=== PATIENT | female | born 1940 | race Caucasian/White ===

== ENCOUNTER 2019-05-25 00:15 | Inpatient (IN) | payer MEDICARE ==
[2019-05-25] MEDS ORDERED: ONDANSETRON 4 MG/2 ML VIAL IVP STA (00:33)
[2019-05-25] MEDS ORDERED: ASPIRIN 81 MG PO STA (00:33)
[2019-05-25] MEDS ORDERED: SODIUM CHLORIDE 0.9% 1,000 ML IV STA (00:33)
--- NOTE | 2019-05-25 00:43 | ED ---
Chest Pain HPI - General Chief Complaint: Chest Pain Stated Complaint: Chest Pain, Nausea Time Seen by Provider: 05/25/19 00:33 Source: patient Mode of arrival: wheelchair Limitations: no limitations - History of Present Illness Initial Comments: Umberto is a 79-year-old lady with a past medical history of hypertension, hyperlipidemia and diabetes. Patient presents to the emergency department today for evaluation of acute onset of chest pain. Patient reports that around 8:30 PM she was sitting on her couch when she developed retrosternal pressure-like chest pain with associated diaphoresis and nausea. Patient thought initially it might just be indigestion and she has no history of heart disease. She took some [id number]-pod-[id number] indigestion relief medications including [place] with no improvement in her symptoms. Patient reports that since onset she's had progressively worsening pain in her chest with associated nausea which prompted her to bring her to the ER for further evaluation. - Related Data Home Medications Medication Instructions Recorded Confirmed Aspirin EC [Ecotrin Low Dose] 81 mg PO HS 07/20/16 07/20/16 Atenolol [Tenormin] 50 mg PO DAILY 07/20/16 07/20/16 Insulin Glargine,Hum.rec.anlog 25 unit SQ HS 07/20/16 07/20/16 [Lantus Solostar] Pravastatin Sodium [Pravachol] 40 mg PO HS 07/20/16 07/20/16 metFORMIN HCL 1,000 mg PO BID 07/20/16 07/20/16 sitaGLIPtin [Januvia] 100 mg PO DAILY 07/20/16 07/20/16 Previous Rx's Medication Instructions Recorded Losartan [Cozaar] 100 mg PO DAILY #60 tab 07/22/16 Meclizine [Antivert] 12.5 mg PO TID #30 tab 07/22/16 Ondansetron HCl [Zofran] 4 mg PO Q8HR PRN #15 tab 07/22/16 Pantoprazole [Protonix] 40 mg PO BID #60 tablet. 07/22/16 amLODIPine [Norvasc] 5 mg PO BID #60 tab 07/22/16 Allergies Allergy/AdvReac Type Severity Reaction Status Date / Time indomethacin [From Indocin] Allergy Unknown Verified 05/25/19 00:21 morphine Allergy Unknown Verified 05/25/19 00:21 Review of Systems ROS Statement: Those systems with pertinent positive or pertinent negative responses have been documented in the HPI. ROS Other: All systems not noted in ROS Statement are negative. EKG Findings - EKG Comments: EKG Findings:: Initial EKG was obtained at 12:33 AM, rate is 97 rhythm is sinus, there is normal axis, normal intervals, MS 180, QRS 80, QTC is 469, there is ST elevation in leads [address] depression noted in lead 1 and V2 through V6. This is concerning for ischemic changes but does not meet STEMI criteria. A repeat EKG was obtained at 12:40 AM, rate is 89 rhythm is again sinus with a normal axis, normal intervals, MS 186, QRS 72, QTc is 450, again we see significant ST elevations in leads 3 mild J-point elevation in leads 2, ST depressions in leads 1 aVL and the lateral leads. This is again concerning for ischemia but does not meet STEMI criteria Past Medical History Past Medical History: Diabetes Mellitus, Hyperlipidemia, Hypertension Additional Past Medical History / Comment(s): RSD History of Any Multi-Drug Resistant Organisms: None Reported Past Surgical History: Section Past Anesthesia/Blood Transfusion Reactions: No Reported Reaction Past Psychological History: No Psychological Hx Reported Smoking Status: Never smoker Past Alcohol Use History: None Reported Past Drug Use History: None Reported - Past Family History Mother Family Medical History: No Reported History Father Family Medical History: Myocardial Infarction ([place]) General Exam - General Exam Comments Initial Comments: Physical Exam GENERAL: Uncomfortable appearing, moderate distress HENT: Normocephalic, Atraumatic. EYES: PERRL, EOMI PULMONARY: Unlabored respirations CARDIOVASCULAR: RRR Warm and well perfused extremities, pulses are present and equal bilaterally in upper and lower extremities ABDOMEN: Soft and nontender with normal bowel sounds. SKIN: Skin is clear with no lesions or rashes and otherwise unremarkable. Pale : Normal external genitalia NEUROLOGIC: Patient is alert and oriented x3. Moving all extremities spontaneously MUSCULOSKELETAL: Normal extremities with adequate strength and full range of motion. No lower extremity swelling or edema. No calf tenderness. PSYCHIATRIC: Appropriate situational anxiety Limitations: no limitations Course Vital Signs 05/25/19 05/25/19 05/25/19 00:18 01:02 01:16 Temperature 98.1 F Pulse Rate 95 Respiratory 18 20 Rate Blood Pressure 191/81 151/81 181/84 O2 Sat by Pulse 99 Oximetry Chest Pain MDM - Differential Diagnosis ACS - MDM The patient was seen and evaluated upon arrival to the emergency department and EKG was obtained. Initial EKG is quite concerning for ischemia. Patient's history and physical exam also concerning is the patient is an obese hypertensive diabetic who became diaphoretic developed chest pain and nausea. Patient is noted to be hypertensive. Initial EKG and repeat EKG were discussed with Dr. Mackey cardiology distribution manager at 12:40 AM, given the patient's age, medical history and presenting symptoms we agreed to activate the Medical Payment Poster, Dr. Mackey recommended aggressive nitro for blood pressure control Again spoke with Dr. Maceky at 1250, at this time he would like a CT to rule out dissection Patient received one sublingual nitro, blood pressure decreased from 181 sy stolic to 129, this is concerning for a right-sided myocardial infarction. We will not pursue more aggressive nitro. IV fluids are infusing. Patient was transferred to the CT suite for dissection study. Portable chest x-ray with no mediastinal widening Patient care discussed with Dr. Wright who accepts admission I personally reviewed the images from the patient CT I see no obvious signs of dissection. She returned to her exam room, repeat blood pressure is again 180 systolic, a second sublingual nitro was given, a low dose nitro drip was ordered and the patient was transferred to shellfish processing laborer to 01:[address] Mackey was updated on patient's condition and location, as well as preliminary CT findings - LINDSAY Score Age > 65: (1) Yes 3 or more CAD Risk Factors: (1) Yes Aspirin use within the Past 7 Days: (1) Yes ST Deviation Greater than 0.5mm: (1) Yes Critical Care Time Critical Care Time: Yes Total Critical Care Time: 45 Critical Care Time: Critical Care Time Critical care time was exclusive of separately billable procedures and treating other patients and teaching time. Critical care was necessary to treat or prevent imminent or life-threatening deterioration. Given the critical condition in which the patient arrived, the patient was immediately assessed by myself and the nurse, and cardiac monitoring initiated due to the potential for rapid decompensation of the patient's clinical condition. During the course of the patients stay, I spent a considerable amount of time at the bedside performing serial re-evaluations of the patient's hemodynamic and clinical status because of the recognized potential threat to life or limb in this condition. I then had a chance to review not only all of the available current laboratory and radiographic studies obtained today, but I also reviewed old records available to me at the time. Additionally, any ancillary information available including tar heater records were reviewed. Sequential vital signs were obtained. Disposition Clinical Impression: Chest pain, Myocardial ischemia Disposition: ADMITTED IP TO THIS HOSP Condition: Serious
[2019-05-25] MEDS: NITROGLYCERIN SL TABS 0.4 MG TAB SUBLINGUAL PRN ×2 (00:53→01:17)
[2019-05-25 00:58] LABS: Anisocytosis Slight; Basophils % (A) 0 %; Eosinophils # (A) 0.3 k/uL (0-0.7); Eosinophils % (A) 3 %; HCT 33.2 % (34.0-46.0); HGB 10.5 gm/dL (11.4-16.0); Hypochromasia Slight; Lymphocytes # (A) 2.4 k/uL (1.0-4.8); Lymphocytes % (A) 22 %; MCHC 31.7 g/dL (31.0-37.0); MCV 85.3 fL (80.0-100.0); Mean Platelet Volume 7.7; Monocytes # (A) 0.7 k/uL (0-1.0); Monocytes % (A) 6 %; Neutrophils # (A) 7.4 k/uL (1.3-7.7); Neutrophils % (A) 66 %; Platelet Count 261 k/uL (150-450); RDW 16.1 % (11.5-15.5); WBC 11.1 k/uL (3.8-10.6)
[2019-05-25] MEDS ORDERED: HEPARIN SODIUM,PORCINE 5,000 UNIT/ML 1 ML VIAL IV ONE (01:03)
[2019-05-25 01:05] LABS: Albumin 4.2 g/dL (3.5-5.0); Calcium 9.2 mg/dL (8.4-10.2); Potassium 4.7 mmol/L (3.5-5.1); Total Bilirubin 0.4 mg/dL (0.2-1.3); Total Protein 7.3 g/dL (6.3-8.2)
[2019-05-25 01:06] LABS: INR 0.9 (<1.2); Partial Thromboplastin Time 23.3 sec (22.0-30.0); Prothrombin Time 9.5 sec (9.0-12.0)
[2019-05-25] MEDS ORDERED: HEPARIN SOD,PORK IN 0.45% NACL 25,000 UNIT in 0.45% NACL 1 250ML.BAG IV SCH (01:15)
--- NOTE | 2019-05-25 01:16 | XR ---
EXAM: XR Chest, 1 View CLINICAL HISTORY: ITS.REASON XR Reason: Chest Pain TECHNIQUE: Frontal view of the chest. COMPARISON: No relevant prior studies available. FINDINGS: Lungs: Unremarkable. No consolidation. Pleural space: Unremarkable. No pneumothorax. Heart: No pneumomediastinum. Mediastinum: Unremarkable. Bones/joints: No definite fracture. IMPRESSION: No acute findings.
[2019-05-25] MEDS ORDERED: NITROGLYCERIN-D5W PMX 50 MG in DEXTROSE/WATER 1 250ML.BAG IV ONE (01:17)
[2019-05-25 01:22] LABS: Creatine Kinase MB 1.2 ng/mL (0.0-2.4)
--- NOTE | 2019-05-25 01:28 | CT ---
EXAM: CT Angiography Chest With Intravenous Contrast CLINICAL HISTORY: ITS.REASON CT Reason: Chest pain TECHNIQUE: Axial computed tomographic angiography images of the chest with intravenous contrast using pulmonary embolism protocol. This CT exam was performed using one or more of the following dose reduction techniques: automated exposure control, adjustment of the mA and/or kV according to patient size, and/or use of iterative reconstruction technique. MIP reconstructed images were created and reviewed. COMPARISON: No relevant prior studies available. FINDINGS: Pulmonary arteries: Unremarkable. No pulmonary embolism. Aorta: No suspicious findings. No thoracic aortic aneurysm. Lungs: Unremarkable. No mass. No consolidation. Pleural space: Unremarkable. No significant effusion. No pneumothorax. Heart: Unremarkable. No cardiomegaly. No significant pericardial effusion. No evidence of RV dysfunction. Bones/joints: No acute fracture. No dislocation. Soft tissues: Unremarkable. Lymph nodes: Unremarkable. No enlarged lymph nodes. IMPRESSION: Normal chest CTA. No pulmonary embolism. EXAM: CT Angiography Abdomen and Pelvis With Intravenous Contrast CLINICAL HISTORY: ITS.REASON CT Reason: Chest pain TECHNIQUE: Axial computed tomographic angiography images of the abdomen and pelvis with intravenous contrast. This CT exam was performed using one or more of the following dose reduction techniques: automated exposure control, adjustment of the mA and/or kV according to patient size, and/or use of iterative reconstruction technique. 3D reconstructed images were created and reviewed. COMPARISON: No relevant prior studies available. FINDINGS: VASCULATURE: Aorta: No suspicious findings. No abdominal aortic aneurysm. No dissection. Celiac trunk and mesenteric arteries: No suspicious findings. No occlusion or significant stenosis. Renal arteries: No suspicious findings. No occlusion or significant stenosis. Iliac arteries: No suspicious findings. No occlusion or significant stenosis. Lung bases: Unremarkable. No mass. No consolidation. ABDOMEN: Liver: No mass. Gallbladder and bile ducts: Unremarkable. No calcified stones. No ductal dilation. Pancreas: Unremarkable. No ductal dilation. No mass. Spleen: Unremarkable. No splenomegaly. Adrenals: Unremarkable. No mass. Kidneys and ureters: Unremarkable. No hydronephrosis. No solid mass. Stomach and bowel: Unremarkable. No obstruction. No mucosal thickening. PELVIS: Appendix: No findings to suggest acute appendicitis. Bladder: Unremarkable. No mass. Reproductive: Calcified fibroids in the uterus ABDOMEN and PELVIS: Intraperitoneal space: Unremarkable. No significant fluid collection. No free air. Bones/joints: No acute fracture. No dislocation. Soft tissues: Unremarkable. Lymph nodes: Unremarkable. No enlarged lymph nodes. IMPRESSION: No acute findings.
[2019-05-25 01:35] LABS: Troponin I 0.042 ng/mL (0.000-0.034)
[2019-05-25] MEDS ORDERED: IV FLUID CONTINUATION 1,000 ML IV ONE (01:35)
[2019-05-25] MEDS ORDERED: NITROGLYCERIN SL TABS 0.4 MG TAB SUBLINGUAL ONE (01:40)
[2019-05-25] MEDS ORDERED: MIDAZOLAM (PF) 2 MG/2 ML VIAL IV ONE (01:40)
[2019-05-25] MEDS ORDERED: LIDOCAINE 1% INJ 10MG/ML (20 ML MDV) SQ ONE (01:42)
[2019-05-25] MEDS: NITROGLYCERIN 1000MCG/10ML SYRINGE INTRAARTER ONE ×2 (01:44→02:08)
[2019-05-25] MEDS ORDERED: BIVALIRUDIN BOLUS 250 MG/50 ML IV ONE (01:53)
[2019-05-25] MEDS ORDERED: BIVALIRUDIN 250 MG in SODIUM CHLORIDE 0.9% 50 ML IV ONE (01:54)
[2019-05-25] MEDS ORDERED: CLOPIDOGREL 75 MG TAB PO ONE (02:08)
[2019-05-25] MEDS ORDERED: HYDROmorphone 1 MG/ML 1 ML SYRINGE IVP ONE (02:14)
[2019-05-25] MEDS ORDERED: IOPAMIDOL-370 100ML BTL INJ ONE (02:15)
[2019-05-25] MEDS ORDERED: amLODIPine 5 MG TAB PO ONE (02:25)
[2019-05-25] MEDS ORDERED: NITROGLYCERIN SL TABS 0.4 MG TAB SUBLINGUAL PRN (02:29)
[2019-05-25] MEDS ORDERED: ZOLPIDEM 5 MG TAB PO PRN (02:29)
[2019-05-25] MEDS ORDERED: MAG HYDROX/AL HYDROX/SIMETH 30 ML CUP PO PRN (02:29)
[2019-05-25] MEDS ORDERED: RX INFO: IV CONTRAST WAS GIVEN 1 EACH MISC MISCELLANE PRN (02:29)
[2019-05-25] MEDS ORDERED: ATROPINE SULFATE 0.1 MG/ML 10ML SYRINGE IV PRN (02:29)
[2019-05-25 03:02] LABS: Glucose,Whole Blood 226 mg/dL (75-99)
[2019-05-25 03:09] VITALS: BMI 38.5
--- NOTE | 2019-05-25 03:56 | P.HPIM ---
History of Present Illness H&P Date: 05/25/19 Chief Complaint: chest pain 79-year-old female with history of hypertension diabetes, CK D Patient was brought into the hospital due to worsening chest pain. She reports the chest pain started all of a sudden around 8:30 PM. Described as retrosternal pressure-like chest pain 10 out of 10 in severity associated with sweating and nausea patient thought that she's having indigestion from dinner ticks on medications without much benefit due to progressive symptoms , and pain started radiating to her left shoulder and arm and worsening pain she was brought into the hospital lab rep was activated upon cardiology recommendations EKGs showed signs of ischemia but did not meet criteria for STEMI. Patient had elevated troponin and crushing chest pain. Cardiology recommended giving nitroglycerin ruling out dissection. Patient denies any cardiac history in the past she was foundto have 99% blockage of RCA< stent was deployed Review of Systems Pertinent positives as noted in HPI. All other systems were reviewed and are negative Past Medical History Past Medical History: Diabetes Mellitus, Hyperlipidemia, Hypertension Additional Past Medical History / Comment(s): RSD History of Any Multi-Drug Resistant Organisms: None Reported Past Surgical History: Section Past Anesthesia/Blood Transfusion Reactions: No Reported Reaction Past Psychological History: No Psychological Hx Reported Smoking Status: Never smoker Past Alcohol Use History: None Reported Past Drug Use History: None Reported - Past Family History Mother Family Medical History: No Reported History Father Family Medical History: Myocardial Infarction ([place]) Medications and Allergies Home Medications Medication Instructions Recorded Confirmed Type Aspirin EC [Ecotrin Low Dose] 81 mg PO HS 07/20/16 07/20/16 History Atenolol [Tenormin] 50 mg PO DAILY 07/20/16 07/20/16 History Insulin Glargine,Hum.rec.anlog 25 unit SQ HS 07/20/16 07/20/16 History [Lantus Solostar] Pravastatin Sodium [Pravachol] 40 mg PO HS 07/20/16 07/20/16 History metFORMIN HCL 1,000 mg PO BID 07/20/16 07/20/16 History sitaGLIPtin [Januvia] 100 mg PO DAILY 07/20/16 07/20/16 History Losartan [Cozaar] 100 mg PO DAILY #60 tab 07/22/16 Rx Meclizine [Antivert] 12.5 mg PO TID #30 tab 07/22/16 Rx Ondansetron HCl [Zofran] 4 mg PO Q8HR PRN #15 tab 07/22/16 Rx Pantoprazole [Protonix] 40 mg PO BID #60 tablet. 07/22/16 Rx amLODIPine [Norvasc] 5 mg PO BID #60 tab 07/22/16 Rx Allergies Allergy/AdvReac Type Severity Reaction Status Date / Time indomethacin [From Indocin] Allergy Unknown Verified 05/25/19 00:21 morphine Allergy Unknown Verified 05/25/19 00:21 Physical Exam Vitals: Vital Signs Temp Pulse Resp BP Pulse Ox 05/25/19 01:16 181/84 05/25/19 01:02 20 151/81 05/25/19 00:18 98.1 F 95 18 191/81 99 Intake and Output 05/24/19 05/24/19 05/25/19 14:59 22:59 06:59 Other: Weight 81.647 kg Constitutional: No acute distress, conversant, pleasant Eyes: Anicteric sclerae, moist conjunctiva, no lid-lag Pupils equal round reactive to light ENMT: NC/AT Oropharynx clear, no erythema, or exudates Neck: Supple, FROM, no masses, or JVD No carotid bruits No thyromegaly Lungs: Clear to auscultation Clear to percussion Normal respiratory effort, no accessory muscle use Cardiovascular: Heart regular in rate and rhythm, No murmurs, gallops, or rubs bilateral leg edema trace Abdominal: Soft Nontender, no guarding, rebound or rigidity Abdomen moving with respiration Normoactive bowel sounds No hepatomegaly, No splenomegaly No palpable mass No abdominal wall hernia noted Skin: right groin access site, no swelling, no bruising , no bleeding Normal temperature, tone, texture, turgor No induration No subcutaneous nodules No rash, lesions No ulcers Extremities: No digital cyanosis No clubbing Pedal pulses intact and symmetrical Radial pulses intact and symmetrical No calf tenderness Psychiatric: Alert and oriented to person, place not oriented to time Appropriate affect fair judgment Neuro Muscles Strength 4/5 in all 4 extremities Sensation to light touch grossly present throughout Cranial nerves II-XII grossly intact No focal sensory deficits Lymphatics: no palpable cervical or supraclavicular , or inguinal lymph nodes Results CBC & Chem 7: 05/25/19 00:50 05/25/19 00:50 Labs: Abnormal Lab Results - Last 24 Hours (Table) 05/25/19 05/25/19 05/25/19 Range/Units 00:50 00:50 00:50 WBC 11.1 H (3.8-10.6) k/uL Hgb 10.5 L (11.4-16.0) gm/dL Hct 33.2 L (34.0-46.0) % RDW 16.1 H (11.5-15.5) % BUN 32 H (7-17) mg/dL Creatinine 1.32 H (0.52-1.04) mg/dL Glucose 217 H (74-99) mg/dL Troponin I 0.042 H* (0.000-0.034) ng/mL Assessment and Plan Assessment: 79-year-old female with history of diabetes hypertension and CK D. Admitted as inpatient with anticipated length of stay more than 48 hours due to chest pain with typical features patient was rushed to the lab rep found to have 99% RCA blockage for which a stent was deployed. Patient also had hypertensive urgency. Plan: chest pain 2/2 ACS with 99% RCA blockage s/p stent lab rep activated CT angios the chest did not show any evidence of dissection Aspirin, nitro, statin Cardiology consult Pain control Nitro as needed per cardiology recommendations plavix accelerated hypertension Nitro per cardiology recommendations Resume home meds Chronic conditions Hyperlipidemia Diabetes mellitus CK D Anemia Resume home meds DVT PPX heparin sc Surrogate decision-maker: CODE STATUS:full code Discussed with: Patient, ER, RN Anticipated discharge: 48-[address]: home A total of 60 minutes was spent on the care of this complex patient more than 50% of the time was spent in counseling and care coordination.
[2019-05-25 05:36] LABS: Magnesium 1.4 mg/dL (1.6-2.3)
[2019-05-25 05:47] LABS: Anisocytosis Slight; Basophils % (A) 0 %; Eosinophils % (A) 0 %; HCT 28.4 % (34.0-46.0); Hypochromasia Moderate; Lymphocytes # (A) 1.2 k/uL (1.0-4.8); Lymphocytes % (A) 16 %; MCH 27.2 pg (25.0-35.0); MCHC 31.5 g/dL (31.0-37.0); MCV 86.1 fL (80.0-100.0); Mean Platelet Volume 8.2; Monocytes # (A) 0.3 k/uL (0-1.0); Monocytes % (A) 5 %; Neutrophils # (A) 5.7 k/uL (1.3-7.7); Neutrophils % (A) 77 %; Platelet Count 225 k/uL (150-450); WBC 7.3 k/uL (3.8-10.6)
[2019-05-25 05:55] LABS: Calcium 8.5 mg/dL (8.4-10.2); Potassium 5.7 mmol/L (3.5-5.1)
[2019-05-25 05:58] LABS: HGB 8.9 gm/dL (11.4-16.0)
[2019-05-25] MEDS: SODIUM CHLORIDE 0.9% 1,000 ML IV SCH ×2 (07:02→16:22)
[2019-05-25] MEDS: INSULIN ASPART (NovoLOG) 100 UNIT/ML VIAL SQ SCH ×4 (07:35→20:56)
[2019-05-25] MEDS: METOPROLOL TARTRATE 25 MG TAB PO SCH ×2 (08:19→20:58)
[2019-05-25] MEDS: CLOPIDOGREL 75 MG TAB PO SCH (08:19)
[2019-05-25] MEDS: LOSARTAN 50 MG TAB PO SCH (08:19)
[2019-05-25] MEDS: ASPIRIN 81 MG PO SCH (08:19)
[2019-05-25] MEDS: amLODIPine 5 MG TAB PO SCH ×2 (08:19→20:58)
[2019-05-25] MEDS: HEPARIN SODIUM,PORCINE 5,000 UNIT/ML 1 ML VIAL SQ SCH ×2 (08:20→20:57)
--- NOTE | 2019-05-25 09:41 | CONS ---
CONSULTATION Mrs. Peña is a 79-year-old lady without any physician that she sees here in [facility]. She has a health care in [place], [place]. She came into the hospital after 1-week history of ongoing episodes of epigastric and chest burning sensation for which she took some [place]. However, she had a prolonged pain from 9 pm today, came to the emergency room, had chest pain with radiation to the left upper extremity. Also complained of some crushing discomfort in the upper portion of the chest. Her systolic blood pressure was 190-200 and the EKG revealed [address] elevation in lead [address] depression in lateral leads. Clinical presentation did not suggest acute ST-elevation VT. However, because of an acute ischemic syndrome and significantly elevated blood pressure in a patient with known type 2 diabetes, hypertension, hyperlipidemia, and obesity, I recommended a CAT scan to be performed to rule out any aortic pathology. CT angio did not reveal any aortic pathology and then she was taken to the cardiac lab engineer for coronary angiography. Rationale, risks, benefits, options were explained to the patient. At the time of my evaluation in the lab engineer, patient's chest pain was better. Her ST-segment elevation was not evident. The initial EKG revealed [address] elevation in lead [address] depression in lead V5 and V6 and one in aVL. Prompt cardiac catheterization and PCI were advised and I proceeded to perform procedure expeditiously. PAST MEDICAL HISTORY: This is remarkable for type 2 diabetes mellitus, on insulin, hypertension, hyperlipidemia. No documented evidence of any prior myocardial infarction. MEDICATIONS: At home include amlodipine 5 mg b.i.d., losartan 100 mg daily, Antivert, atenolol 50 mg daily, insulin, Lantus and Humalog, Pravachol 40 mg daily, metformin 1000 mg b.i.d., aspirin 81 mg daily. She also used some statins in the past. ALLERGIES: She is allergic to INDOMETHACIN and MORPHINE. Her coronary risk factors include diabetes, hypertension, hyperlipidemia, and obesity. She is not a smoker. On examination, blood pressure was 210/110, pulse rate was about 90 per minute. HEENT: Unremarkable, fundus was not examined by me. NECK: Exam revealed a JVD of 1 cm. No carotid bruit. HEART: Exam revealed S1, S2 heard normally without significant murmurs. LUNGS: Revealed bilateral decent air entry. ABDOMEN: Soft. EXTREMITIES: Lower extremity revealed diminished pulses. CENTRAL NERVOUS SYSTEM: Grossly within normal limits. IMPRESSION: 1. Acute ischemic syndrome with ST-segment depression in one aVL, V5, V6 with a [address]-segment elevation in lead 3. Clinical picture strongly suggest acute ischemic syndrome, but does not suggest acute ST-elevation myocardial infarction. 2. Accelerated hypertension. 3. Hyperlipidemia. 4. Type 2 diabetes. RECOMMENDATION: Recommend a prompt cardiac cath and PCI and proceeded to perform the procedure expeditiously. MMODL / IJN: [id number] /
--- NOTE | 2019-05-25 09:44 | CC ---
CARDIAC CATHETERIZATION REPORT DATE OF SERVICE: 05/25/2019. PROCEDURE: 1. Left heart catheterization and coronary angiography. 2. PTCA and stenting of proximal RCA in the setting of acute ischemic syndrome, but not ST-elevation ID. PERFORMED BY: Dr. Kirby Mackey. Moderate conscious sedation time was 30 minutes. CLINICAL INFORMATION: Mrs. Umberto Peña is a 79-year-old lady with type 2 diabetes, hypertension, and obesity who came to the hospital with chest pain, had ST-segment changes suggestive of suggestive of the acute ischemic syndrome. She was advised prompt cardiac catheterization and was brought to the cardiac laborer yard expeditiously. PROCEDURE NOTE: Under local anesthesia and strict aseptic precautions, a 6-Divehi introducer was placed in the right femoral artery. Coronary angiography was performed with standard Taras catheters and the same right Taras catheter was used to check LV pressure but LV gram was not performed. Following this, I performed intervention of the proximal RCA in the same setting. Following the procedure, I took the sheath out and placed a Perclose device to secure good hemostasis. CARDIAC CATHETERIZATION FINDINGS: The left end-diastolic pressure was about 26 mmHg without any gradient across aortic valve. CORONARY ANGIOGRAPHY FINDINGS: RIGHT CORONARY ARTERY: Technically a dominant vessel, has a 99% proximal stenosis, calcification noted. Distally it bifurcates into PDA and PLV and both the branches. the PDA and PLV have diffuse disease of nearly 40%-50%, but no critical stenosis. Proximal RCA has a 99% stenosis and appears to be the culprit lesion. LEFT MAIN CORONARY ARTERY: Short patent disease-free vessel that immediately bifurcates into LAD and circumflex. Left main itself is free of significant disease. LEFT ANTERIOR DESCENDING CORONARY ARTERY: Fair caliber vessel has moderate calcification. It gives off a first diagonal branch of good caliber, then a septal branch and then a second diagonal branch. After the second diagonal branch, there is a long area of narrowing of about 70% to 80% and then the caliber of the vessel improves somewhat, but there is still diffuse disease and runs all the way to the apex supplying a sizable amount of myocardium. The mid LAD therefore has a 70% long lesion which I do not think is the culprit lesion, but quite significant. Two diagonal branches have diffuse disease and septal branch have diffuse disease in distal LAD has diffuse disease. LEFT POSTERIOR CIRCUMFLEX CORONARY ARTERY: Nondominant vessel, gives off to one small obtuse marginal, then a second obtuse marginal is of a small caliber with fair distribution, has a 99% stenosis. Overall, the vessel is less than 2 mm, has diffuse disease in it and proximal portion has a 95% stenosis, but is not a large vessel. Third obtuse marginal is a good caliber vessel, has about 40% proximal lesion, distally runs and supplies a sizable amount of myocardium, is tortuous, supplies a fair amount of myocardium. Rest of circumflex is small in caliber and distribution. FINAL IMPRESSION: This patient has a 99% proximal right coronary artery stenosis with diffuse disease in the branches of right coronary artery. The left anterior descending artery has a 70% long mid lesion. Circumflex, the second obtuse marginal is small in caliber and distribution, has a 95% stenosis and the obtuse marginal which is the largest obtuse marginal has a 40% narrowing with mild diffuse disease in distal circumflex. Filling pressures are elevated, but there was no gradient across aortic valve. RECOMMENDATION: I recommended PCI of RCA and performed this in the same setting. PCI PROCEDURE DETAILS: A standard right Taras guide catheter was used to cannulate the right coronary artery. Angiomax bolus and drip were used as per protocol. The patient received 600 mg of Plavix orally. A run-through wire was used to cross the lesion. A 2.5 caliber 15 mm Trek balloon was used to pre-dilate the lesion. A 3.25 caliber 23 mm long Xience stent was deployed at 13 atmospheres. Patient had chest pain and had more prominent inferior ST elevation. Excellent angiographic result was achieved without complication. The sheath was then taken out and a Perclose device used to secure hemostasis and she was sent to the room in stable condition. Findings and results were discussed with the patient and family. Excellent angiographic result was achieved. Moderate conscious sedation time was 30 minutes. Patient was administered Versed. Oxygen saturation, hemodynamics and EKG were monitored closely. MMODL / IJN: [id number] /
--- NOTE | 2019-05-25 09:56 | PN ---
PROGRESS NOTE Mrs. Peña is a 79-year-old female who presented with an acute inferior myocardial infarction, underwent cardiac catheterization by Dr. Kirby Mackey, was found to have a critical stenosis in the right coronary artery, underwent stenting of that vessel. At the same time, she was found to have disease in the LAD. She is doing well this morning. She has no further symptoms of chest pain. Her breathing has been stable. She denies any dizziness or palpitation. She denies any nausea. She has no prior documented history of coronary artery disease prior to this event. She continues to be at this time on aspirin once a day, Lipitor 80 mg daily, Plavix 75 mg daily, losartan 100 mg daily, metoprolol tartrate 25 mg twice a day. PHYSICAL EXAMINATION: Blood pressure running in the 160s to 170s with a heart rate in the 70s. HEAD: Normocephalic. EYES: Sclerae nonicteric. LUNGS: Clear to auscultation. HEART: Regular rate and rhythm, S1, S2. No S3. No rub with a systolic murmur at the base. ABDOMEN: Soft, nontender. Positive bowel sounds. No organomegaly. Right groin, no hematoma. LAB DATA: Revealed a hemoglobin of 8.9. Troponin 0.042 yesterday. BUN and creatinine 28 and 1.16, potassium 5.7. IMPRESSION: 1. Status post inferior myocardial infarction and stenting of the right coronary artery. 2. 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 3. Hypertension. 4. Hyperlipidemia. 5. Diabetes mellitus. RECOMMENDATION: From the cardiac standpoint, I will obtain echocardiogram with Doppler. I will adjust her antihypertensive regimen. Continue rest of medical regimen, increase her activity gradually and depending on her progress further recommendation will be made. The patient will and will need to undergo re-evaluation of her LAD lesion, but the timing will depend on her progress. MMODL / IJN: [id number] /
--- NOTE | 2019-05-25 10:01 | ECHOF ---
Referral Reason:Inf [place] RCA PCI MEASUREMENTS -------- HEIGHT: 129.5 cm WEIGHT: 81.6 kg BP: RVIDd: 2.3 cm (< 3.3) IVSd: 1.0 cm (0.6 - 1.1) LVIDd: 4.2 cm (3.9 - 5.3) LVPWd: 1.3 cm (0.6 - 1.1) IVSs: 1.7 cm LVIDs: 2.4 cm LVPWs: 1.9 cm LAESV Index (A-L): 18.56 ml/m Ao Diam: 2.6 cm (2.0 - 3.7) AV Cusp: 1.5 cm (1.5 - 2.6) LA Diam: 3.1 cm (2.7 - 3.8) MV EXCURSION: 11.800 mm (> 18.000) MV EF SLOPE: 56 mm/s (70 - 150) EPSS: 1.0 cm MV E Paul: 1.00 m/s MV DecT: 208 ms MV A Paul: 1.42 m/s MV E/A Ratio: 0.71 RAP: 5.00 mmHg RVSP: 21.31 mmHg FINDINGS -------- Sinus rhythm. This was a technically good study. The left ventricular size is normal. There is mild concentric left ventricular hypertrophy. Overa ll left ventricular systolic function is normal with, an EF between 55 - 60 %. The right ventricle is normal in size. The left atrial size is normal. Normal LA size by volume 22+/-6 ml/m2. The right atrial size is normal. Interatrial and interventricular septum intact. The aortic valve is trileaflet and appears structurally normal. The mitral valve is normal. Moderate mitral regurgitation is present. The tricuspid valve appears structurally normal. Mild tricuspid regurgitation present. Right vent ricular systolic pressure is normal at < 35 mmHg. There is no pulmonic regurgitation present. The aortic root size is normal. Normal inferior vena cava with normal inspiratory collapse consistent with estimated right atrial pre ssure of 5 mmHg. There is no pericardial effusion. CONCLUSIONS -------- 1. Sinus rhythm. 2. This was a technically good study. 3. The left ventricular size is normal. 4. There is mild concentric left ventricular hypertrophy. 5. Overall left ventricular systolic function is normal with, an EF between 55 - 60 %. 6. The right ventricle is normal in size. 7. The left atrial size is normal. 8. Normal LA size by volume 22+/-6 ml/m2. 9. The right atrial size is normal. 10. Interatrial and interventricular septum intact. 11. The aortic valve is trileaflet and appears structurally normal. 12. The mitral valve is normal. 13. Moderate mitral regurgitation is present. 14. The tricuspid valve appears structurally normal. 15. Mild tricuspid regurgitation present. 16. Right ventricular systolic pressure is normal at < 35 mmHg. 17. There is no pulmonic regurgitation present. 18. The aortic root size is normal. 19. Normal inferior vena cava with normal inspiratory collapse consistent with estimated right atrial pressure of 5 mmHg. 20. There is no pericardial effusion. DOCK OPERATIONS SUPERVISOR: Nikki Gonzalez RDCS
[2019-05-25 12:31] LABS: Glucose,Whole Blood 89 mg/dL (75-99)
[2019-05-25] MEDS ORDERED: Magnesium Replacement Protocol 1 EACH MISC MISCELLANE PRN (13:01)
[2019-05-25] MEDS: MAGNESIUM SULFATE-D5W PMX 1 GM in DEXTROSE/WATER 1 100ML.BAG IVPB SCH ×3 (13:22→16:16)
--- NOTE | 2019-05-25 15:42 | P.PN ---
Subjective Progress Note Date: 05/25/19 Patient is seen and examined and follow-up and is having minimal chest discomfort post left heart cath with stenting of the RCA. She reports her breathing is doing okay, denies any nausea or vomiting. blood sugars have been elevated. Echocardiogram has been done results are pending. Left heart cath showed coronary disease with a 99% proximal RCA stenosis, 70% LAD lesion, 95% stenosis in the obtuse marginal, and 40% narrowing in the distal circumflex. Objective - Vital Signs Vital signs: Vital Signs Temp 98.1 F 05/25/19 12:00 Pulse 71 05/25/19 15:00 Resp 16 05/25/19 15:00 BP 125/51 05/25/19 15:00 Pulse Ox 94 L 05/25/19 15:00 Intake & Output 05/24/19 05/25/19 05/25/19 18:59 06:59 18:59 Intake Total 150 700 Balance 150 700 Weight 86.5 kg 86.5 kg Intake: IV 150 450 Sodium Chloride 0.9% 1, 450 000 ml @ 75 mls/hr IV . [id number] [facility] Rx#:[id number] Oral 250 Other: Voiding Method Toilet # Voids 2 1 - Exam Constitutional: No acute distress, conversant, pleasant Eyes: Anicteric sclerae, moist conjunctiva, no lid-lag, PERRLA ENMT: NC/AT,Oropharynx clear, no erythema, exudates Neck:Supple, FROM, no masses, or JVD, No carotid bruits; No thyromegaly Lungs: Clear to auscultation, Clear to percussion, Normal respiratory effort, no accessory muscle use Cardiovascular: Heart regular in rate and rhythm, No murmurs, gallops, or rubs no peripheral edema Abdominal: Soft Nontender, nom distended, no guarding, no rebound or rigidity, Normoactive bowel sounds No hepatomegaly, No splenomegaly, No palpable mass No abdominal wall hernia noted Skin: Normal temperature, tone, texture, turgor, No induration No subcutaneous nodules, No rash, lesions, No ulcers Extremities:No digital cyanosis No clubbing, Pedal pulses intact and symmetrical Radial pulses intact and symmetrical Normal gait and station, No calf tenderness Psychiatric: Alert and oriented to person, place and time, Appropriate affect Intact judgement Neuro: Muscles Strength 5/5 in all 4 extremities, Sensation to light touch grossly present throughout, Cranial nerves II-XII grossly intact. No focal sensory deficits - Labs CBC & Chem 7: 05/25/19 05:22 05/25/19 05:22 Labs: Abnormal Lab Results - Last 24 Hours (Table) 05/25/19 05/25/19 05/25/19 Range/Units 00:50 00:50 00:50 WBC 11.1 H (3.8-10.6) k/uL RBC (3.80-5.40) m/uL Hgb 10.5 L (11.4-16.0) gm/dL Hct 33.2 L (34.0-46.0) % RDW 16.1 H (11.5-15.5) % Sodium (137-145) mmol/L Potassium (3.5-5.1) mmol/L BUN 32 H (7-17) mg/dL Creatinine 1.32 H (0.52-1.04) mg/dL Glucose 217 H (74-99) mg/dL POC Glucose (mg/dL) (75-99) mg/dL Magnesium 1.4 L (1.6-2.3) mg/dL Troponin I 0.042 H* (0.000-0.034) ng/mL 05/25/19 05/25/19 05/25/19 Range/Units 02:50 05:22 05:22 WBC (3.8-10.6) k/uL RBC 3.30 L (3.80-5.40) m/uL Hgb 8.9 L D (11.4-16.0) gm/dL Hct 28.4 L (34.0-46.0) % RDW 16.0 H (11.5-15.5) % Sodium 135 L (137-145) mmol/L Potassium 5.7 H (3.5-5.1) mmol/L BUN 28 H (7-17) mg/dL Creatinine 1.16 H (0.52-1.04) mg/dL Glucose 242 H (74-99) mg/dL POC Glucose (mg/dL) 226 H (75-99) mg/dL Magnesium (1.6-2.3) mg/dL Troponin I (0.000-0.034) ng/mL 05/25/19 05/25/19 Range/Units 05:22 13:34 WBC (3.8-10.6) k/uL RBC (3.80-5.40) m/uL Hgb (11.4-16.0) gm/dL Hct (34.0-46.0) % RDW (11.5-15.5) % Sodium (137-145) mmol/L Potassium (3.5-5.1) mmol/L BUN (7-17) mg/dL Creatinine (0.52-1.04) mg/dL Glucose (74-99) mg/dL POC Glucose (mg/dL) (75-99) mg/dL Magnesium (1.6-2.3) mg/dL Troponin I 11.400 H* 24.200 H* (0.000-0.034) ng/mL Assessment and Plan (1) Non-ST elevation [place] (NSTEMI) Narrative/Plan: * Status post left coronary heart catheterization with stenting of the RCA * Echocardiogram showing preserved LVEF of 55-60% * Continue dual antiplatelet therapy with Plavix and aspirin, metoprolol, and Lipitor * Cardiology following appreciate recommendations Current Visit: Yes Status: Acute Code(s): I21.4 - NON-ST ELEVATION (NSTEMI) MYOCARDIAL INFARCTION SNOMED Code(s): 20030013 (2) Presence of stent in coronary artery in patient with coronary artery disease Narrative/Plan: * The treatment as above * Patient has further lesions in the LAD left obtuse marginal and circumflex arteries Current Visit: Yes Status: Acute Code(s): I25.10 - ATHSCL HEART DISEASE OF [place] CORONARY ARTERY W/O ANG PCTRS; Z95.5 - PRESENCE OF CORONARY ANGIOPLASTY IMPLANT AND GRAFT SNOMED Code(s): 143634791 (3) Type 2 diabetes mellitus with hyperglycemia Narrative/Plan: * Blood sugars elevated to 17-242 * continue with correctional scale insulin coverage continue Januvia we'll resume her home insulin regimen 35 units of long-acting insulin * Continue Januvia * Continue to monitor blood sugars Current Visit: Yes Status: Acute Code(s): E11.65 - TYPE 2 DIABETES MELLITUS WITH HYPERGLYCEMIA SNOMED Code(s): 951266087271066 (4) Essential hypertension Narrative/Plan: * Blood pressures are now much better controlled continue to monitor * Continue regimen of metoprolol and Norvasc and losartan Current Visit: Yes Status: Acute Code(s): I10 - ESSENTIAL (PRIMARY) HYPERTENSION SNOMED Code(s): 29592355 (5) Hyperlipidemia Narrative/Plan: * Continue statin regimen Current Visit: Yes Status: Acute Code(s): E78.5 - HYPERLIPIDEMIA, UNSPECI FIED SNOMED Code(s): 60146813 Plan: * Disposition patient doing well post-stenting of the RCA * May need reevaluation and stenting of the LAD will defer decision to cardiology whether to proceed with that during his hospitalization or planned follow-up * Continue to follow patient's clinical course
[2019-05-25 16:39] LABS: Hemoglobin A1C 7.8 % (4.0-6.0)
[2019-05-25 16:48] LABS: Glucose,Whole Blood 201 mg/dL (75-99)
[2019-05-25 20:53] LABS: Glucose,Whole Blood 159 mg/dL (75-99)
[2019-05-25] MEDS: INSULIN DETEMIR (LEVEMIR) 100 UNIT/ML SYR SQ SCH (20:57)
[2019-05-25] MEDS: ATORVASTATIN 80 MG TAB PO SCH (20:58)
[2019-05-25] MEDS: FLUTICASONE 50MCG/SPRAY NASAL 16GM EA NOSTRIL SCH (21:03)
[2019-05-26 06:07] LABS: Calcium 9.1 mg/dL (8.4-10.2); Magnesium 2.2 mg/dL (1.6-2.3); Potassium 4.7 mmol/L (3.5-5.1)
[2019-05-26] MEDS: INSULIN ASPART (NovoLOG) 100 UNIT/ML VIAL SQ SCH ×4 (06:53→21:38)
[2019-05-26 07:03] LABS: Glucose,Whole Blood 117 mg/dL (75-99)
[2019-05-26] MEDS: HEPARIN SODIUM,PORCINE 5,000 UNIT/ML 1 ML VIAL SQ SCH ×2 (08:30→21:38)
[2019-05-26] MEDS: CLOPIDOGREL 75 MG TAB PO SCH (08:31)
[2019-05-26] MEDS: METOPROLOL TARTRATE 25 MG TAB PO SCH (08:31)
[2019-05-26] MEDS: MAGNESIUM OXIDE 400 MG TAB PO SCH (08:32)
[2019-05-26] MEDS: LOSARTAN 50 MG TAB PO SCH (08:32)
[2019-05-26] MEDS: amLODIPine 5 MG TAB PO SCH ×2 (08:32→21:38)
[2019-05-26] MEDS: ASPIRIN 81 MG PO SCH (08:32)
[2019-05-26] MEDS: FLUTICASONE 50MCG/SPRAY NASAL 16GM EA NOSTRIL SCH ×2 (08:34→21:39)
[2019-05-26] MEDS ORDERED: NON-FORMULARY DRUG (Ubidecarenone [Co Q-10] 300 MG) PO SCH (09:00)
[2019-05-26] MEDS: HYDROCHLOROTHIAZIDE 25 MG TAB PO SCH (09:10)
--- NOTE | 2019-05-26 09:20 | PN ---
PROGRESS NOTE Mrs. Peña is a 79-year-old female who presented with an acute myocardial infarction, underwent stenting of her RCA. She is doing well this morning, she is denying any chest pain. Her breathing is stable. She has some achiness in the right side of the chest. She denies any dizziness or palpitation. She denies any nausea. She had underwent an echocardiogram yesterday that revealed ejection fraction of 55%-60% with moderate mitral and mild tricuspid regurgitation. No evidence of pulmonary hypertension. She continues to be at this time on aspirin once a day, Plavix 75 mg daily. Losartan 100 mg daily, metoprolol tartrate 25 mg twice a day, and amlodipine 5 mg twice a day. PHYSICAL EXAMINATION: Blood pressure 169/90 with a heart in the 80s. LUNGS: Clear. HEART: Regular rate and rhythm, S1, S2. No S3. No rub. ABDOMEN: Soft, nontender. EXTREMITIES: No edema. LAB DATA: Lab data revealed BUN and creatinine 17 and 0.99, potassium 4.7 her troponin peaked at 24.2. Cholesterol 157, LDL of 74. IMPRESSION: 1. Status post inferior myocardial infarction with stenting of the right coronary artery. 2. Evidence of obstructive disease in the LAD. 3. Hypertension. 4. Hyperlipidemia. 5. Diabetes mellitus. RECOMMENDATION: From the cardiac standpoint, I will add to her regimen hydrochlorothiazide 25 mg daily to optimize her blood pressure control. She should be able to be transferred to telemetry floor. She will be evaluated regarding the timing of undergoing revascularization of her LAD territory. MMODL / IJN: [id number] /
[2019-05-26] MEDS ORDERED: METOPROLOL TARTRATE 25 MG TAB PO STA (11:57)
--- NOTE | 2019-05-26 11:59 | P.PN ---
Subjective Progress Note Date: 05/26/19 Patient is seen and examined and follow-up and is having minimal chest discomfort post left heart cath with stenting of the RCA. She reports her breathing is doing okay, denies any nausea or vomiting. blood sugars have been elevated but improved control today. Echocardiogram indicating preserved LVEF with moderate MR, Left heart cath showed coronary disease with a 99% proximal RCA stenosis, 70% LAD lesion, 95% stenosis in the obtuse marginal, and 40% narrowing in the distal circumflex. Blood pressure today has been elevated systolically from 155 to 190s Objective - Vital Signs Vital signs: Vital Signs Temp 98.7 F 05/26/19 08:00 Pulse 76 05/26/19 10:00 Resp 15 05/26/19 10:00 BP 193/68 05/26/19 10:37 Pulse Ox 95 05/26/19 10:00 Intake & Output 05/25/19 05/26/19 05/26/19 18:59 06:59 18:59 Intake Total 1325 310 320 Balance 1325 310 320 Weight 86.5 kg 83 kg Intake: IV 825 310 20 Sodium Chloride 0.9% 1, 825 310 20 000 ml @ 75 mls/hr IV . [id number] [facility] Rx#:[id number] Oral 500 300 Other: Voiding Method Toilet Toilet Toilet # Voids 1 1 1 - Exam Constitutional: No acute distress, conversant, pleasant Eyes: Anicteric sclerae, moist conjunctiva, no lid-lag, PERRLA ENMT: NC/AT,Oropharynx clear, no erythema, exudates Neck:Supple, FROM, no masses, or JVD, No carotid bruits; No thyromegaly Lungs: Clear to auscultation, Clear to percussion, Normal respiratory effort, no accessory muscle use Cardiovascular: Heart regular in rate and rhythm, No murmurs, gallops, or rubs no peripheral edema Abdominal: Soft Nontender, nom distended, no guarding, no rebound or rigidity, Normoactive bowel sounds No hepatomegaly, No splenomegaly, No palpable mass No abdominal wall hernia noted Skin: Normal temperature, tone, texture, turgor, No induration No subcutaneous nodules, No rash, lesions, No ulcers Extremities:No digital cyanosis No clubbing, Pedal pulses intact and symmetrical Radial pulses intact and symmetrical Normal gait and station, No calf tenderness Psychiatric: Alert and oriented to person, place and time, Appropriate affect Intact judgement Neuro: Muscles Strength 5/5 in all 4 extremities, Sensation to light touch grossly present throughout, Cranial nerves II-XII grossly intact. No focal sensory deficits - Labs CBC & Chem 7: 05/25/19 05:22 05/26/19 04:34 Labs: Abnormal Lab Results - Last 24 Hours (Table) 05/25/19 05/25/19 05/25/19 Range/Units 05:22 13:34 16:37 Chloride (98-107) mmol/L POC Glucose (mg/dL) 201 H (75-99) mg/dL Hemoglobin A1c 7.8 H (4.0-6.0) % Troponin I 24.200 H* (0.000-0.034) ng/mL Triglycerides (<150) mg/dL 05/25/19 05/26/19 05/26/19 Range/Units 20:41 04:34 06:50 Chloride 109 H (98-107) mmol/L POC Glucose (mg/dL) 159 H 117 H (75-99) mg/dL Hemoglobin A1c (4.0-6.0) % Troponin I (0.000-0.034) ng/mL Triglycerides 186 H (<150) mg/dL Assessment and Plan (1) Non-ST elevation [place] (NSTEMI) Narrative/Plan: * Status post left coronary heart catheterization with stenting of the RCA * Echocardiogram showing preserved LVEF of 55-60% * Continue dual antiplatelet therapy with Plavix and aspirin, metoprolol, and Lipitor * Cardiology following appreciate recommendations Current Visit: Yes Status: Acute Code(s): I21.4 - NON-ST ELEVATION (NSTEMI) MYOCARDIAL INFARCTION SNOMED Code(s): 03948766 (2) Presence of stent in coronary artery in patient with coronary artery disease Narrative/Plan: * The treatment as above * Patient has further lesions in the LAD left obtuse marginal and circumflex arteries Current Visit: Yes Status: Acute Code(s): I25.10 - ATHSCL HEART DISEASE OF [place] CORONARY ARTERY W/O ANG PCTRS; Z95.5 - PRESENCE OF CORONARY ANGIOPLASTY IMPLANT AND GRAFT SNOMED Code(s): 866967301 (3) Type 2 diabetes mellitus with hyperglycemia Narrative/Plan: * Blood sugars elevated to 17-242 * continue with correctional scale insulin coverage continue Arianuvtulio we'll resume her home insulin regimen 35 units of long-acting insulin * Continue Januvia * Continue to monitor blood sugars Current Visit: Yes Status: Acute Code(s): E11.65 - TYPE 2 DIABETES MELLITUS WITH HYPERGLYCEMIA SNOMED Code(s): 324822562265184 (4) Essential hypertension Narrative/Plan: * Blood pressures are significantly elevated today systolically between 150 to 190s * titrated up metoprolol to 50 twice a day and give extra dose of metoprolol 25 now and continue Norvasc and losartan * Continue to monitor blood pressure closely Current Visit: Yes Status: Acute Code(s): I10 - ESSENTIAL (PRIMARY) HYPERTENSION SNOMED Code(s): 58092488 (5) Hyperlipidemia Narrative/Plan: * Continue statin regimen Current Visit: Yes Status: Acute Code(s): E78.5 - HYPERLIPIDEMIA, UNSPECIFIED SNOMED Code(s): 19803654 Plan: * Disposition patient doing well post-stenting of the RCA * May need reevaluation and stenting of the LAD will defer decision to cardiolo gy whether to proceed with that during his hospitalization or planned follow- up * Continue to follow patient's clinical course
[2019-05-26 12:16] LABS: Glucose,Whole Blood 168 mg/dL (75-99)
[2019-05-26 17:19] LABS: Glucose,Whole Blood 119 mg/dL (75-99)
[2019-05-26] MEDS ORDERED: LABETALOL 5 MG/ML VIAL MDV IVP STA (18:59)
[2019-05-26] MEDS: ATORVASTATIN 80 MG TAB PO SCH (21:38)
[2019-05-26] MEDS: METOPROLOL TARTRATE 50 MG TAB PO SCH (21:38)
[2019-05-26] MEDS: hydrALAZINE HCL 50 MG TAB PO SCH (21:38)
[2019-05-26] MEDS: INSULIN DETEMIR (LEVEMIR) 100 UNIT/ML SYR SQ SCH (21:39)
[2019-05-27 06:28] LABS: Glucose,Whole Blood 122 mg/dL (75-99)
[2019-05-27 06:35] LABS: Calcium 9.2 mg/dL (8.4-10.2); Potassium 4.7 mmol/L (3.5-5.1)
[2019-05-27] MEDS: INSULIN ASPART (NovoLOG) 100 UNIT/ML VIAL SQ SCH ×4 (06:36→21:10)
[2019-05-27] MEDS: HYDROCHLOROTHIAZIDE 25 MG TAB PO SCH (09:15)
[2019-05-27] MEDS: HEPARIN SODIUM,PORCINE 5,000 UNIT/ML 1 ML VIAL SQ SCH ×2 (09:15→21:10)
[2019-05-27] MEDS: CLOPIDOGREL 75 MG TAB PO SCH (09:15)
[2019-05-27] MEDS: ASPIRIN 81 MG PO SCH (09:15)
[2019-05-27] MEDS: amLODIPine 5 MG TAB PO SCH ×2 (09:15→21:11)
[2019-05-27] MEDS: LOSARTAN 50 MG TAB PO SCH (09:15)
[2019-05-27] MEDS: hydrALAZINE HCL 50 MG TAB PO SCH ×3 (09:15→21:11)
[2019-05-27] MEDS: FLUTICASONE 50MCG/SPRAY NASAL 16GM EA NOSTRIL SCH ×2 (09:15→21:10)
[2019-05-27] MEDS: MAGNESIUM OXIDE 400 MG TAB PO SCH (09:15)
[2019-05-27] MEDS: METOPROLOL TARTRATE 50 MG TAB PO SCH (09:19)
--- NOTE | 2019-05-27 09:55 | P.PN ---
Subjective Progress Note Date: 05/27/19 Patient's and examined bedside has been up and amplitude to the restroom and back, blood pressure looks much improved today. Nursing reporting 6 second positives on patient's telemetry strip, the patient denies any symptoms of chest pain but reported episodes of shortness of breath at approximately 3 AM last night. Objective - Vital Signs Vital signs: Vital Signs Temp 98.2 F 05/27/19 03:10 Pulse 80 05/27/19 03:10 Resp 16 05/27/19 03:10 BP 141/61 05/27/19 03:10 Pulse Ox 95 05/27/19 03:10 Intake & Output 05/26/19 05/27/19 05/27/19 18:59 06:59 18:59 Intake Total 320 240 Balance 320 240 Weight 81.7 kg Intake: IV 20 Sodium Chloride 0.9% 1, 20 000 ml @ 75 mls/hr IV . [id number] ALO Rx#:[id number] Oral 300 240 Other: Voiding Method Toilet Toilet # Voids 1 - Exam Constitutional: No acute distress, conversant, pleasant Eyes: Anicteric sclerae, moist conjunctiva, no lid-lag, PERRLA ENMT: NC/AT,Oropharynx clear, no erythema, exudates Neck:Supple, FROM, no masses, or JVD, No carotid bruits; No thyromegaly Lungs: Clear to auscultation, Clear to percussion, Normal respiratory effort, no accessory muscle use Cardiovascular: Heart regular in rate and rhythm, No murmurs, gallops, or rubs no peripheral edema Abdominal: Soft Nontender, nom distended, no guarding, no rebound or rigidity, Normoactive bowel sounds No hepatomegaly, No splenomegaly, No palpable mass No abdominal wall hernia noted Skin: Normal temperature, tone, texture, turgor, No induration No subcutaneous nodules, No rash, lesions, No ulcers Extremities:No digital cyanosis No clubbing, Pedal pulses intact and symmetrical Radial pulses intact and symmetrical Normal gait and station, No calf tenderness Psychiatric: Alert and oriented to person, place and time, Appropriate affect Intact judgement Neuro: Muscles Strength 5/5 in all 4 extremities, Sensation to light touch grossly present throughout, Cranial nerves II-XII grossly intact. No focal sensory deficits - Labs CBC & Chem 7: 05/25/19 05:22 08/31/19 05:55 Labs: Abnormal Lab Results - Last 24 Hours (Table) 05/26/19 05/26/19 05/27/19 Range/Units 12:05 17:08 05:55 BUN 19 H (7-17) mg/dL Creatinine 1.24 H (0.52-1.04) mg/dL Glucose 120 H (74-99) mg/dL POC Glucose (mg/dL) 168 H 119 H (75-99) mg/dL 05/27/19 Range/Units 06:26 BUN (7-17) mg/dL Creatinine (0.52-1.04) mg/dL Glucose (74-99) mg/dL POC Glucose (mg/dL) 122 H (75-99) mg/dL Assessment and Plan (1) Non-ST elevation PR (NSTEMI) Narrative/Plan: * Status post left coronary heart catheterization with stenting of the RCA * Echocardiogram showing preserved LVEF of 55-60% * Continue dual antiplatelet therapy with Plavix and aspirin, metoprolol, and Lipitor * Cardiology following appreciate recommendations Current Visit: Yes Status: Acute Code(s): I21.4 - NON-ST ELEVATION (NSTEMI) MYOCARDIAL INFARCTION SNOMED Code(s): 64308428 (2) Presence of stent in coronary artery in patient with coronary artery disease Narrative/Plan: * The treatment as above * Patient has further lesions in the LAD left obtuse marginal and circumflex arteries Current Visit: Yes Status: Acute Code(s): I25.10 - ATHSCL HEART DISEASE OF [place] CORONARY ARTERY W/O ANG PCTRS; Z95.5 - PRESENCE OF CORONARY ANGIOPLASTY IMPLANT AND GRAFT SNOMED Code(s): 254164413 (3) Type 2 diabetes mellitus with hyperglycemia Narrative/Plan: * Blood sugars elevated to 17-242 * continue with correctional scale insulin coverage continue Januvia we'll resum e her home insulin regimen 35 units of long-acting insulin * Continue Januvia * Continue to monitor blood sugars Current Visit: Yes Status: Acute Code(s): E11.65 - TYPE 2 DIABETES MELLITUS WITH HYPERGLYCEMIA SNOMED Code(s): 186557776525797 (4) Essential hypertension Narrative/Plan: * Blood pressures are much improved today * Hold metoprolol today and continue Norvasc and losartan and hydralazine * Continue to monitor blood pressure closely Current Visit: Yes Status: Acute Code(s): I10 - ESSENTIAL (PRIMARY) HYPERTENSION SNOMED Code(s): 06790609 (5) Hyperlipidemia Narrative/Plan: * Continue statin regimen Current Visit: Yes Status: Acute Code(s): E78.5 - HYPERLIPIDEMIA, UNSPECIFIED SNOMED Code(s): 25226848 Plan: * Disposition patient doing well post-stenting of the RCA * May need reevaluation and stenting of the LAD will defer decision to cardiology whether to proceed with that during his hospitalization or planned follow-up * Continue to follow patient's clinical course
[2019-05-27 12:02] LABS: Glucose,Whole Blood 202 mg/dL (75-99)
--- NOTE | 2019-05-27 12:24 | PN ---
PROGRESS NOTE Umberto is admitted to hospital with acute myocardial infarction and underwent cardiac catheterization and angioplasty of right coronary artery. Patient has a 70% stenosis involving mid LAD and also has a 95% stenosis involving an OM branch. Patient needs LAD stenting, but I am told that the plan at this stage is to perform this in the outpatient setting. Patient this morning is doing well and is free of symptoms. On exam, comfortable at rest. Vital signs are stable. Chest exam reveals good air entry bilaterally. Heart exam reveals first and second heart sounds. No gallop. Exam of extremities did not reveal any edema. Peripheral pulses are felt. Labs show that the creatinine is 1.2. Current medications include aspirin, Lipitor, Plavix, Apresoline, HydroDIURIL, Cozaar, Lopressor. ASSESSMENT: Acute coronary syndrome, status post catheterization and angioplasty of right coronary artery. PLAN: Patient is doing well. I am going to talk to Dr. Mackey about the LAD lesion but patient is stable to be discharged home when we are going to decide the angioplasty of the LAD. MMODL / IJN: [id number] /
[2019-05-27 16:56] LABS: Glucose,Whole Blood 218 mg/dL (75-99)
[2019-05-27 21:05] LABS: Glucose,Whole Blood 172 mg/dL (75-99)
[2019-05-27] MEDS: INSULIN DETEMIR (LEVEMIR) 100 UNIT/ML SYR SQ SCH (21:10)
[2019-05-27] MEDS: ATORVASTATIN 80 MG TAB PO SCH (21:11)
[2019-05-28 06:55] LABS: Glucose,Whole Blood 176 mg/dL (75-99)
[2019-05-28] MEDS: INSULIN ASPART (NovoLOG) 100 UNIT/ML VIAL SQ SCH ×4 (07:22→21:01)
--- NOTE | 2019-05-28 08:21 | P.PN ---
Subjective Progress Note Date: 05/28/19 Patient's and examined bedside has been up and amplitude to the restroom and back, blood pressure looks much improved today. Nursing reporting 2.8 sec pauses on patient's telemetry strip, the patient denies any symptoms of chest pain blood sugars have been elevated this morning and 170s receive sliding scale coverage, patient's blood pressure is been more well controlled Objective - Vital Signs Vital signs: Vital Signs Temp 98.4 F 05/28/19 03:20 Pulse 98 05/28/19 03:20 Resp 16 05/28/19 03:20 BP 108/57 05/28/19 03:20 Pulse Ox 94 L 05/28/19 03:20 Intake & Output 05/27/19 05/28/19 05/28/19 18:59 06:59 18:59 Intake Total 1380 Balance 1380 Intake: Oral 1380 Other: Voiding Method Toilet Toilet # Voids 2 - Exam Constitutional: No acute distress, conversant, pleasant Eyes: Anicteric sclerae, moist conjunctiva, no lid-lag, PERRLA ENMT: NC/AT,Oropharynx clear, no erythema, exudates Neck:Supple, FROM, no masses, or JVD, No carotid bruits; No thyromegaly Lungs: Clear to auscultation, Clear to percussion, Normal respiratory effort, no accessory muscle use Cardiovascular: Heart regular in rate and rhythm, No murmurs, gallops, or rubs no peripheral edema Abdominal: Soft Nontender, nom distended, no guarding, no rebound or rigidity, Normoactive bowel sounds No hepatomegaly, No splenomegaly, No palpable mass No abdominal wall hernia noted Skin: Normal temperature, tone, texture, turgor, No induration No subcutaneous nodules, No rash, lesions, No ulcers Extremities:No digital cyanosis No clubbing, Pedal pulses intact and symmetrical Radial pulses intact and symmetrical Normal gait and station, No calf tenderness Psychiatric: Alert and oriented to person, place and time, Appropriate affect Intact judgement Neuro: Muscles Strength 5/5 in all 4 extremities, Sensation to light touch grossly present throughout, Cranial nerves II-XII grossly intact. No focal sensory deficits - Labs CBC & Chem 7: 05/25/19 05:22 05/27/19 05:55 Labs: Abnormal Lab Results - Last 24 Hours (Table) 05/27/19 05/27/19 05/27/19 Range/Units 12:00 16:53 21:04 POC Glucose (mg/dL) 202 H 218 H 172 H (75-99) mg/dL 05/28/19 Range/Units 06:45 POC Glucose (mg/dL) 176 H (75-99) mg/dL Assessment and Plan (1) Non-ST elevation [place] (NSTEMI) Narrative/Plan: * Status post left coronary heart catheterization with stenting of the RCA * Echocardiogram showing preserved LVEF of 55-60% * Continue dual antiplatelet therapy with Plavix and aspirin, metoprolol, and Lipitor * Cardiology following appreciate recommendations Current Visit: Yes Status: Acute Code(s): I21.4 - NON-ST ELEVATION (NSTEMI) MYOCARDIAL INFARCTION SNOMED Code(s): 26671180 (2) Presence of stent in coronary artery in patient with coronary artery disease Narrative/Plan: * The treatment as above * Patient has further lesions in the LAD left obtuse marginal and circumflex arteries Status: Acute Code(s): I25.10 - ATHSCL HEART DISEASE OF [place] CORONARY ARTERY W/O ANG PCTRS; Z95.5 - PRESENCE OF CORONARY ANGIOPLASTY IMPLANT AND GRAFT SNOMED Code(s): 285364353 (3) Type 2 diabetes mellitus with hyperglycemia Narrative/Plan: * Blood sugars elevated to 17-242 * continue with correctional scale insulin coverage continue Januvia we'll resume her home insulin regimen 35 units of long-acting insulin * Continue Januvia * Continue to monitor blood sugars Current Visit: Yes Status: Acute Code(s): E11.65 - TYPE 2 DIABETES MELLITUS WITH HYPERGLYCEMIA SNOMED Code(s): 071616416412130 (4) Essential hypertension Narrative/Plan: * Blood pressures are much improved today * Hold metoprolol today and continue Norvasc and losartan and hydralazine * Continue to monitor blood pressure closely Current Visit: Yes Status: Acute Code(s): I10 - ESSENTIAL (PRIMARY) HYPERTENSION SNOMED Code(s): 23386818 (5) Hyperlipidemia Narrative/Plan: * Continue statin regimen Current Visit: Yes Status: Acute Code(s): E78.5 - HYPERLIPIDEMIA, UNSPECIFIED SNOMED Code(s): 94055242 Plan: * Disposition patient doing well post-stenting of the RCA * May need reevaluation and stenting of the LAD will defer decision to cardiology whether to proceed with that during his hospitalization or planned follow-up * Continue to follow patient's clinical course
[2019-05-28] MEDS: HYDROCHLOROTHIAZIDE 25 MG TAB PO SCH (09:13)
[2019-05-28] MEDS: CLOPIDOGREL 75 MG TAB PO SCH (09:13)
[2019-05-28] MEDS: ASPIRIN 81 MG PO SCH (09:13)
[2019-05-28] MEDS: FLUTICASONE 50MCG/SPRAY NASAL 16GM EA NOSTRIL SCH ×2 (09:13→21:02)
[2019-05-28] MEDS: hydrALAZINE HCL 50 MG TAB PO SCH ×3 (09:13→21:01)
[2019-05-28] MEDS: MAGNESIUM OXIDE 400 MG TAB PO SCH (09:13)
[2019-05-28] MEDS: LOSARTAN 50 MG TAB PO SCH (09:13)
[2019-05-28] MEDS: amLODIPine 5 MG TAB PO SCH ×2 (09:13→21:01)
[2019-05-28] MEDS: HEPARIN SODIUM,PORCINE 5,000 UNIT/ML 1 ML VIAL SQ SCH ×2 (09:14→21:01)
[2019-05-28 11:52] LABS: Glucose,Whole Blood 206 mg/dL (75-99)
--- NOTE | 2019-05-28 13:08 | PN ---
PROGRESS NOTE Umberto is a 79-year-old lady who was admitted to the hospital with myocardial infarction. Underwent cardiac catheterization, angioplasty. She has a lesion in the LAD and OM branch that were going to be addressed as outpatient yesterday. The patient had more than 3 second pause. She is on a beta swapnil, which I stopped. Last night again she had a pause of about 2.8 seconds while she was sleeping. At the time of my evaluation this morning, she appears comfortable at rest. Vital signs are stable. Chest exam reveals good air entry bilaterally. Heart exam reveals first and second heart sounds. No gallop. No murmur. Abdomen is soft, nontender. Exam of extremities did not reveal any edema. Peripheral pulses are felt. LABS: Labs show that the creatinine is 1.2. Potassium is 4.7, hemoglobin is 8.9, platelet count is 225. ASSESSMENT: 1. Coronary artery disease status post prior angioplasty. 2. Asymptomatic bradycardia. PLAN: Her bradycardia could be related to the beta blockers could be sleep apnea. This is a patient who needs beta blockers and since we are not able to give it she may benefit from a permanent pacemaker. I spoke to Dr. Kirby Mackey, her primary solutions market consultant, who is going to come see the patient and address both issues; a) whether we are going to do a pacemaker or not and b) whether she is going to undergo revascularization on this admission or not. I had a long conversation with the patient, her and the daughter who is from [place] at bedside. MMLANA / MERARY: [id number] /
[2019-05-28 17:12] LABS: Glucose,Whole Blood 255 mg/dL (75-99)
[2019-05-28 20:38] LABS: Glucose,Whole Blood 272 mg/dL (75-99)
[2019-05-28] MEDS: ATORVASTATIN 80 MG TAB PO SCH (21:01)
[2019-05-28] MEDS: INSULIN DETEMIR (LEVEMIR) 100 UNIT/ML SYR SQ SCH (21:02)
--- NOTE | 2019-05-28 21:53 | PN ---
PROGRESS NOTE HISTORY: Ms. Peña suffered from an acute inferior SC, underwent stenting of RCA performed by me. Dr. Glez called and asked ne about the family's desire or expectation that an LAD stent was to be performed on this hospitalization. There was also concern about bradycardia and some pauses. I therefore came in to see the patient and had a long discussion with the patient and her and also daughter and granddaughter. I basically explained to them that the bradycardic spells are occurring at night suggesting that she may have sleep apnea. She is unsure if she has sleep apnea or not, but has not had any testing performed. I suggested that for nighttime bradycardia, we will not give beta blockers at night but may resume 12.5 mg of metoprolol in the morning and I have encouraged her to have a sleep study performed. She was quite reluctant to have this done, but seems to be more receptive to the idea after our discussion. The second issue I talked about was her coronary disease. I performed stenting of the RCA in the setting of an acute SC and the LV function is excellent. There is almost no evidence of any wall motion abnormality with a decent ejection fraction. I explained this to the patient and family. I suggested that there was an LAD lesion, but the entire LAD was diffusely diseased vessel with a mid lesion of 70%. I dispelled any expectation that I was going to perform the procedure in 24 hours after the initial PCI. I explained to the that I never at any point explained to him or any other family members, nor did I write a note suggesting that we will do a PCI during this hospitalization. This is a 70% lesion that can be safely done as a staged procedure in the next couple of weeks. She also has elevated creatinine up to 1.24 and I am cutting back the hydrochlorothiazide to 12.5 mg daily. Her blood pressure control which was somewhat erratic has been very well optimized. There was an issue with blood sugar control and this is also being addressed. I suggested that if she remains stable, she can be discharged, should have a sleep study and I will see her in the office within a week and we will perform a staged intervention of mid LAD lesion which I believe is diffuse lesion and not critical that I need to perform procedure today. Of note, patient has not had any chest pain and she has been reasonably active around her room and also outside and the LV function has been good. In light of her current clinical status, no coronary intervention id necessary and we will monitor her heart rate closely and do a sleep study as an outpatient and do a 12.5 mg lopressor in the morning only because her bradycardia seems to be mostly at nighttime. After all the discussion, patient and family seem to be quite happy and were comfortable with this approach. I will look at her rhythm strips tomorrow. MADELEINE / MERARY: [id number] /
[2019-05-29 06:36] LABS: Glucose,Whole Blood 177 mg/dL (75-99)
[2019-05-29] MEDS: INSULIN ASPART (NovoLOG) 100 UNIT/ML VIAL SQ SCH ×4 (07:04→20:53)
[2019-05-29 08:14] VITALS: RESP 18
[2019-05-29] MEDS: HEPARIN SODIUM,PORCINE 5,000 UNIT/ML 1 ML VIAL SQ SCH ×2 (09:19→20:53)
[2019-05-29] MEDS: CLOPIDOGREL 75 MG TAB PO SCH (09:20)
[2019-05-29] MEDS: hydrALAZINE HCL 50 MG TAB PO SCH ×3 (09:20→20:52)
[2019-05-29] MEDS: METOPROLOL TARTRATE 12.5 MG TAB PO SCH (09:20)
[2019-05-29] MEDS: HYDROCHLOROTHIAZIDE 12.5 MG CAP PO SCH (09:20)
[2019-05-29] MEDS: amLODIPine 5 MG TAB PO SCH ×2 (09:20→20:52)
[2019-05-29] MEDS: MAGNESIUM OXIDE 400 MG TAB PO SCH (09:20)
[2019-05-29] MEDS: LOSARTAN 50 MG TAB PO SCH (09:21)
[2019-05-29] MEDS: FLUTICASONE 50MCG/SPRAY NASAL 16GM EA NOSTRIL SCH ×2 (09:21→20:52)
[2019-05-29] MEDS: ASPIRIN 81 MG PO SCH (09:22)
--- NOTE | 2019-05-29 11:44 | PN ---
PROGRESS NOTE Umberto is a 79-year-old lady who is admitted to hospital following a myocardial infarction, underwent cardiac catheterization and angioplasty of the right coronary artery. She has had asymptomatic pauses. Initially we thought it was related to the beta blockers. They are being held. She continues to have intermittent episodes of sinus pauses. This morning her heart rate is actually elevated and is in the 90s and her metoprolol dose had been resumed. She had been started on metoprolol 12.5 daily and if she tolerates it, this will be gradually increased. On exam, there is no jugular venous distention. Chest exam reveals good air entry bilaterally. Heart exam reveals first and second heart sounds. No gallop. Exam of extremities did not reveal any edema. LABS: I do not have any labs from today. ASSESSMENT: 1. Myocardial infarction, status post angioplasty. 2. Asymptomatic bradycardia. PLAN: Continue current medications. Hopefully home tomorrow if she does not have further pauses. If she has significant pauses, she is someone who may benefit from a pacemaker. MADELEINE / TIANN: [id number] /
[2019-05-29 12:01] LABS: Glucose,Whole Blood 210 mg/dL (75-99)
--- NOTE | 2019-05-29 16:07 | P.PN ---
Subjective Progress Note Date: 05/29/19 Patient seen and examined follow-up, the yesterday reporting suspected sleep apnea on nocturnal oximetry ordered yesterday, results unavailable on till tomorrow. The patient was initially tachycardic early this morning and started on low-dose metoprolol, still having episodes of 2-2-1/2 second pauses on telemetry. Patient denies any chest pain or shortness of breath this morning. Objective - Vital Signs Vital signs: Vital Signs Temp 97.7 F 05/29/19 11:25 Pulse 85 05/29/19 11:25 Resp 18 05/29/19 11:25 BP 113/56 05/29/19 11:25 Pulse Ox 96 05/29/19 11:25 Intake & Output 05/28/19 05/29/19 05/29/19 18:59 06:59 18:59 Intake Total 2156 600 Balance 2156 600 Weight 81.7 kg Intake: Oral 2156 600 Other: Voiding Method Toilet Toilet # Voids 2 2 1 - Exam Constitutional: No acute distress, conversant, pleasant Eyes: Anicteric sclerae, moist conjunctiva, no lid-lag, PERRLA ENMT: NC/AT,Oropharynx clear, no erythema, exudates Neck:Supple, FROM, no masses, or JVD, No carotid bruits; No thyromegaly Lungs: Clear to auscultation, Clear to percussion, Normal respiratory effort, no accessory muscle use Cardiovascular: Heart regular in rate and rhythm, No murmurs, gallops, or rubs no peripheral edema Abdominal: Soft Nontender, nom distended, no guarding, no rebound or rigidity, Normoactive bowel sounds No hepatomegaly, No splenomegaly, No palpable mass No abdominal wall hernia noted Skin: Normal temperature, tone, texture, turgor, No induration No subcutaneous nodules, No rash, lesions, No ulcers Extremities:No digital cyanosis No clubbing, Pedal pulses intact and symmetrical Radial pulses intact and symmetrical Normal gait and station, No calf tenderness Psychiatric: Alert and oriented to person, place and time, Appropriate affect Intact judgement Neuro: Muscles Strength 5/5 in all 4 extremities, Sensation to light touch grossly present throughout, Cranial nerves II-XII grossly intact. No focal sen teresa deficits - Labs CBC & Chem 7: 05/25/19 05:22 05/27/19 05:55 Labs: Abnormal Lab Results - Last 24 Hours (Table) 05/28/19 05/28/19 05/29/19 Range/Units 17:09 20:36 06:35 POC Glucose (mg/dL) 255 H 272 H 177 H (75-99) mg/dL 05/29/19 Range/Units 12:00 POC Glucose (mg/dL) 210 H (75-99) mg/dL Assessment and Plan (1) Non-ST elevation [place] (NSTEMI) Narrative/Plan: * Status post left coronary heart catheterization with stenting of the RCA * Echocardiogram showing preserved LVEF of 55-60% * Continue dual antiplatelet therapy with Plavix and aspirin, metoprolol, and Lipitor * Cardiology following appreciate recommendations Current Visit: Yes Status: Acute Code(s): I21.4 - NON-ST ELEVATION (NSTEMI) MYOCARDIAL INFARCTION SNOMED Code(s): 08515546 (2) Presence of stent in coronary artery in patient with coronary artery disease Narrative/Plan: * The treatment as above * Patient has further lesions in the LAD left obtuse marginal and circumflex arteries Status: Acute Code(s): I25.10 - ATHSCL HEART DISEASE OF [place] CORONARY ARTERY W/O ANG PCTRS; Z95.5 - PRESENCE OF CORONARY ANGIOPLASTY IMPLANT AND GRAFT SNOMED Code(s): 848609759 (3) Type 2 diabetes mellitus with hyperglycemia Narrative/Plan: * Blood sugars elevated to 17-242 * continue with correctional scale insulin coverage continue Januvia we'll resume her home insulin regimen 35 units of long-acting insulin * Continue Januvia * Continue to monitor blood sugars Current Visit: Yes Status: Acute Code(s): E11.65 - TYPE 2 DIABETES MELLITUS WITH HYPERGLYCEMIA SNOMED Code(s): 803821538815094 (4) Essential hypertension Narrative/Plan: * Blood pressures are much improved today * Hold metoprolol today and continue Norvasc and losartan and hydralazine * Continue to monitor blood pressure closely Current Visit: Yes Status: Acute Code(s): I10 - ESSENTIAL (PRIMARY) HYPERTENSION SNOMED Code(s): 42009921 (5) Hyperlipidemia Narrative/Plan: * Continue statin regimen Current Visit: Yes Status: Acute Code(s): E78.5 - HYPERLIPIDEMIA, UNSPECIFIE D SNOMED Code(s): 61002275 Plan: * Disposition patient doing well post-stenting of the RCA * Plan for patient to go home tomorrow if and when cleared by cardiology
[2019-05-29 16:51] LABS: Glucose,Whole Blood 247 mg/dL (75-99)
[2019-05-29 20:32] LABS: Glucose,Whole Blood 286 mg/dL (75-99)
[2019-05-29] MEDS: ATORVASTATIN 80 MG TAB PO SCH (20:52)
[2019-05-29] MEDS: INSULIN DETEMIR (LEVEMIR) 100 UNIT/ML SYR SQ SCH (20:53)
[2019-05-30 06:08] LABS: Glucose,Whole Blood 193 mg/dL (75-99)
[2019-05-30] MEDS: INSULIN ASPART (NovoLOG) 100 UNIT/ML VIAL SQ SCH ×2 (06:37→12:08)
[2019-05-30] MEDS: HEPARIN SODIUM,PORCINE 5,000 UNIT/ML 1 ML VIAL SQ SCH (08:23)
[2019-05-30] MEDS: amLODIPine 5 MG TAB PO SCH (08:25)
[2019-05-30] MEDS: ASPIRIN 81 MG PO SCH (08:26)
[2019-05-30] MEDS: CLOPIDOGREL 75 MG TAB PO SCH (08:26)
[2019-05-30] MEDS: hydrALAZINE HCL 50 MG TAB PO SCH (08:26)
[2019-05-30] MEDS: FLUTICASONE 50MCG/SPRAY NASAL 16GM EA NOSTRIL SCH (08:26)
[2019-05-30] MEDS: METOPROLOL TARTRATE 12.5 MG TAB PO SCH (08:27)
[2019-05-30] MEDS: HYDROCHLOROTHIAZIDE 12.5 MG CAP PO SCH (08:27)
[2019-05-30] MEDS: MAGNESIUM OXIDE 400 MG TAB PO SCH (08:27)
[2019-05-30] MEDS: LOSARTAN 50 MG TAB PO SCH (08:27)
[2019-05-30 11:18] VITALS: BP 117/56; PULSE 78; TEMP 98
--- NOTE | 2019-05-30 11:31 | P.DS ---
Providers Date of admission: 05/25/19 01:03 Expected date of discharge: 05/30/19 Attending physician: Steve Wright MD Consults: 05/25/19 01:03 Consult Physician Stat Consulting Provider: Rafat Mackey Consult Reason/Comments: ischemic changes on EKG Do you want consulting provider notified?: Already Contacted 05/25/19 02:29 Consult Physician Routine Consulting Provider: [facility] Consult Reason/Comments: Post Interventional patient Do you want consulting provider notified?: Already Contacted Primary care physician: Physician Nonstaff - Discharge Diagnosis(es) (1) Non-ST elevation [place] (NSTEMI) Current Visit: Yes Status: Acute (2) Presence of stent in coronary artery in patient with coronary artery disease Status: Acute (3) Type 2 diabetes mellitus with hyperglycemia Current Visit: Yes Status: Acute (4) Essential hypertension Current Visit: Yes Status: Acute (5) Hyperlipidemia Current Visit: Yes Status: Acute (6) Nocturnal hypoxia Current Visit: Yes Status: Acute Hospital Course: The patient is a 79-year-old female that was admitted with acute non- STEMI after presenting with chest pain, workup with EKG showed ST segment depression in aVL V5 V6 with elevated troponin of 0.042 trending up to as high as 24.2. Code STEMI was called the patient was taken emergently to the cath lab technologist where the patient underwent PCI with stenting of the proximal RCA secondary to a 99% proximal RCA occlusion. The patient was noted to have a 70% lesion in the mid LAD, 95% stenosis of obtuse marginal, the patient was started on heparin drip until antiplatelet therapy. Echocardiogram showed a preserved LVEF of 55- 60% with moderate L MR and mild TR with no evidence of pulmonary hypertension. The patient was noted to have accelerated hypertension which was controlled with metoprolol and amlodipine and losartan and hydralazine. On telemetry the patient began having pauses 2.5 to 6 second with associated bradycardia duration and her metoprolol was weaned down to 12.5 mg PO BID. patient's mentioned concern of sleep apnea and nocturnal oximetry confirmed nocturnal hypoxia with results indicating approximately 28 minutes of desaturation (below 88% ) during as 7 hour period with sats getting as low as 81%. It was thought that the patient's bradycardia was secondary to underlying sleep apnea. These findings were discussed with the patient and initially the patient was adamant about refusing to possibly needing sleep study and CPAP therapy, however by the time of discharge patient was amenable to proceeding with having a sleep polysomnogram done and being compliant with CPAP recommendations. The patient was unable to qualify for oxygen despite her documented nocturnal hypoxemia. She was subsequently discharged home in stable condition with plans to follow-up with cardiology in the outpatient setting as she does need to have stenting of her LAD some point in the near future. This discharge process took approximately 35 minutes. Focused exam Cardiovascular: Regular rate and rhythm no murmurs rubs or gallops, no peripheral edema or JVD Patient Condition at Discharge: Fair Plan - Discharge Summary New Discharge Prescriptions: No Action sitaGLIPtin [Januvia] 100 mg PO DAILY Pravastatin Sodium [Pravachol] 40 mg PO HS Insulin Glargine,Hum.rec.anlog [Lantus Solostar] 35 unit SQ HS Aspirin EC [Ecotrin Low Dose] 81 mg PO HS metFORMIN HCL 1,000 mg PO BID Atenolol [Tenormin] 50 mg PO DAILY Ondansetron HCl [Zofran] 4 mg PO Q8HR PRN #15 tab PRN Reason: Nausea Meclizine [Antivert] 12.5 mg PO TID #30 tab Magnesium 200 mg PO BID Celecoxib [CeleBREX] 200 mg PO DAILY PRN PRN Reason: FOOT PAIN Azelastine HCl [Astepro] 1 spray NASAL DAILY PRN PRN Reason: Allergy Symptoms Losartan Potassium [Cozaar] 100 mg PO DAILY Fluticasone Nasal Seltzer [Flonase Nasal Seltzer] 2 spr EA NOSTRIL BID amLODIPine [Norvasc] 5 mg PO DAILY Ubidecarenone [Co Q-10] 300 mg PO DAILY Pantoprazole [Protonix] 40 mg PO DAILY Discharge Medication List Aspirin EC [Ecotrin Low Dose] 81 mg PO HS 07/20/16 [History] Atenolol [Tenormin] 50 mg PO DAILY 07/20/16 [History] Insulin Glargine,Hum.rec.anlog [Lantus Solostar] 35 unit SQ HS 07/20/16 [History] Pravastatin Sodium [Pravachol] 40 mg PO HS 07/20/16 [History] metFORMIN HCL 1,000 mg PO BID 07/20/16 [History] sitaGLIPtin [Januvia] 100 mg PO DAILY 07/20/16 [History] Meclizine [Antivert] 12.5 mg PO TID #30 tab 07/22/16 [Rx] Ondansetron HCl [Zofran] 4 mg PO Q8HR PRN #15 tab 07/22/16 [Rx] Azelastine HCl [Astepro] 1 spray NASAL DAILY PRN 05/25/19 [History] Celecoxib [CeleBREX] 200 mg PO DAILY PRN 05/25/19 [History] Fluticasone Nasal Seltzer [Flonase Nasal Seltzer] 2 spr EA NOSTRIL BID 05/25/19 [History] Losartan Potassium [Cozaar] 100 mg PO DAILY 05/25/19 [History] Magnesium 200 mg PO BID 05/25/19 [History] Pantoprazole [Protonix] 40 mg PO DAILY 05/25/19 [History] Ubidecarenone [Co Q-10] 300 mg PO DAILY 05/25/19 [History] amLODIPine [Norvasc] 5 mg PO DAILY 05/25/19 [History] Follow up Appointment(s)/Referral(s): Rafat Mackey MD [STAFF PHYSICIAN] - 1 Week (Office will call you with follow up appointment. ) Nonstaff,Physician [Primary Care Provider] - 1-2 days Patient Instructions/Handouts: Using Oxygen at Home (DC), Sleep Study (GEN) Activity/Diet/Wound Care/Special Instructions: Patient requires home oxygen at discharge for nocturnal hypoxia. Sleep Study initial consult- July 04 at 2:[address]. 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 The sleep study will be scheduled shortly after this consult.
[2019-05-30 12:03] LABS: Glucose,Whole Blood 249 mg/dL (75-99)
--- NOTE | 2019-05-30 14:51 | P.PN ---
Subjective Progress Note Date: 05/30/19 This is a 79-year-old female admitted to the hospital following a myocardial infarction, she underwent cardiac catheterization with subsequent stenting of the right coronary artery. Patient had been noted to have pauses on the monitor. They did a nocturnal breathing study on her which showed evidence of sleep apnea. Patient had no further episodes of any positives through the night last night. She is currently on Lopressor 12-1/2 mg daily which we will discontinue. From our perspective she may be able to be discharged home, follow-up in the office. An outpatient sleep study is also been arranged for the patient to have. Blood pressure 116/50 with a heart rate in the 70s. Objective - Vital Signs Vital signs: Vital Signs Temp 98 F 05/30/19 11:15 Pulse 78 05/30/19 11:15 Resp 18 05/30/19 11:15 BP 117/56 05/30/19 11:15 Pulse Ox 98 05/30/19 11:15 Intake & Output 05/29/19 05/30/19 05/30/19 18:59 06:59 18:59 Intake Total 822 240 Balance 822 240 Weight 81.6 kg Intake: IV 10 0.9 10 Oral 822 230 Other: Voiding Method Toilet # Voids 1 1 - Exam PHYSICAL EXAMINATION: GENERAL: 79-year-old female in no acute distress at the time of my examination HEENT: Head is atraumatic, normocephalic. Pupils equal, round. Sclera anicteric. Conjunctiva are clear. Mucous membranes of the mouth are moist. Neck is supple. There is no elevated jugular venous pressure. No carotid bruit is heard. HEART EXAMINATION: Heart S1, S2 normal. No murmur or gallop heard. CHEST EXAMINATION: Lungs are clear to auscultation and precussion. No chest wall tenderness is noted on palpation or with deep breathing. ABDOMEN: Soft, nontender. Bowel sounds are heard. No organomegaly noted. EXTREMITIES: 2+ peripheral pulses with no evidence of peripheral edema and no calf tenderness noted. NEUROLOGIC patient is awake, alert and oriented 3 . . - Labs CBC & Chem 7: 05/25/19 05:22 05/27/19 05:55 Labs: Abnormal Lab Results - Last 24 Hours (Table) 05/29/19 05/29/19 05/30/19 Range/Units 16:50 20:30 05:56 POC Glucose (mg/dL) 247 H 286 H 193 H (75-99) mg/dL 05/30/19 Range/Units 11:52 POC Glucose (mg/dL) 249 H (75-99) mg/dL Assessment and Plan Plan: Assessment and plan #1 non-Q-wave IL, status post stenting of the right coronary artery #2 asymptomatic bradycardia, episodes occurring only at night and during sleep, likely secondary to sleep apnea. #3 hypertension #4 hyperlipidemia #5 diabetes Plan From cardiology's perspective, patient may be able to be discharged home today. We'll make her a follow-up appointment in the office, she will also have a follow-up appointment for a outpatient sleep study. Patient will be discharged home on aspirin 81 mg daily, Plavix 75 mg daily, Lipitor 80 mg daily, Norvasc, losartan, and we will discontinue the beta swapnil. Sublingual nitroglycerin was provided. DNP note has been reviewed, I agree with a documented findings and plan of care. Patient was seen and examined.
== END 2019-05-30 15:00 | disposition home or self-care (01) | DRG 247 ==
LOC: EC 00:15 → 3SCARD 01:03 → 2SICU 01:15 → 3SCARD 05-26 21:59
PROVIDERS: ADMIT Internal Medicine; ATTEND Internal Medicine
PROC: B2111ZZ Fluoroscopy of Multiple Coronary Arteries using Low Osmolar Contrast (ICD-10-PCS; 2019-05-25)
PROC: 027034Z Dilation of Coronary Artery, One Artery with Drug-eluting Intraluminal Device, Percutaneous Approach (ICD-10-PCS; principal; 2019-05-25 01:14)
PROC: 4A023N7 Measurement of Cardiac Sampling and Pressure, Left Heart, Percutaneous Approach (ICD-10-PCS; 2019-05-25 01:14)
DX: I21.4 Non-ST elevation (NSTEMI) myocardial infarction (principal); E11.65 Type 2 diabetes mellitus with hyperglycemia; I08.1 Rheumatic disorders of both mitral and tricuspid valves; D64.9 Anemia, unspecified; R00.1 Bradycardia, unspecified; E66.9 Obesity, unspecified; E78.5 Hyperlipidemia, unspecified; G47.30 Sleep apnea, unspecified; I10 Essential (primary) hypertension; I16.0 Hypertensive urgency; I25.10 Atherosclerotic heart disease of native coronary artery without angina pectoris; Z68.36 Body mass index [BMI] 36.0-36.9, adult; Z79.82 Long term (current) use of aspirin; Z79.4 Long term (current) use of insulin; Z79.899 Other long term (current) drug therapy; Z88.5 Allergy status to narcotic agent; Z88.8 Allergy status to other drugs, medicaments and biological substances; Z82.49 Family history of ischemic heart disease and other diseases of the circulatory system
CPT/HCPCS: 36415; 71045; 71275; 74174; 80048; 80053; 80061; 82550; 82553; 83036; 83735; 83880; 84484; 85025; 85610; 85730; 93005; 93306; 93458; 96361; 96365; 96366; 96372; 96375; 96376; 99291; C1874

== ENCOUNTER → 2019-06-23 | Outpatient (CLI) | payer MEDICARE ==
[2019-06-23 11:42] LABS: HCT 29.8 % (34.0-46.0); HGB 9.6 gm/dL (11.4-16.0); Hypochromasia Moderate; MCH 26.5 pg (25.0-35.0); MCHC 32.1 g/dL (31.0-37.0); MCV 82.4 fL (80.0-100.0); Platelet Count 312 k/uL (150-450); RBC 3.62 m/uL (3.80-5.40); RDW 14.9 % (11.5-15.5); WBC 6.6 k/uL (3.8-10.6)
[2019-06-23 12:08] LABS: T4, Free (Free Thyroxine) 1.66 ng/dL (0.78-2.19)
== END | disposition home or self-care (01) ==
LOC: LABPAT 10:30
PROVIDERS: ATTEND Internal Medicine Interventional Cardiology
DX: Z01.812 Encounter for preprocedural laboratory examination (principal); I25.2 Old myocardial infarction; I49.5 Sick sinus syndrome
CPT/HCPCS: 82565; 84439; 84443; 84520; 85027

== ENCOUNTER 2019-06-26 07:30 | Day surgery (SDC) | payer MEDICARE ==
[~2019-06-26 07:30] MED LIST: ALPRAZolam 0.25 MG TAB PO PRN; ALPRAZolam 0.5 MG TAB PO PRN; ATORVASTATIN 80 MG TAB PO STA; NITROGLYCERIN SL TABS 0.4 MG TAB SUBLINGUAL PRN; SODIUM CHLORIDE 0.9% 1,000 ML in EMPTY BAG 1 BAG IV ONE
[2019-06-26] MEDS ORDERED: ALPRAZolam 0.25 MG TAB PO ONE (08:15)
[2019-06-26 08:16] LABS: Glucose,Whole Blood 170 mg/dL (75-99)
[2019-06-26] MEDS ORDERED: VERAPAMIL 2.5 MG/ML 2 ML AMP ONE (11:40)
[2019-06-26] MEDS ORDERED: LIDOCAINE 1% INJ 10MG/ML (20 ML MDV) ONE ×2 (11:40→12:25)
[2019-06-26] MEDS ORDERED: CLOPIDOGREL 75 MG TAB ONE ×2 (12:00→13:47)
[2019-06-26] MEDS ORDERED: MIDAZOLAM (PF) 2 MG/2 ML VIAL IV ONE (12:09)
[2019-06-26] MEDS ORDERED: LIDOCAINE 1% INJ 10MG/ML (20 ML MDV) SQ ONE ×2 (12:13→12:27)
[2019-06-26] MEDS ORDERED: VERAPAMIL SYRINGE (5 MG/10 ML) INTRAARTER ONE (12:15)
[2019-06-26] MEDS ORDERED: BIVALIRUDIN 250 MG in SODIUM CHLORIDE 0.9% 38 ML IV ONE (12:37)
[2019-06-26] MEDS ORDERED: BIVALIRUDIN BOLUS 250 MG/50 ML IV ONE (12:37)
[2019-06-26] MEDS ORDERED: NITROGLYCERIN SL TABS 0.4 MG TAB SUBLINGUAL ONE ×2 (12:40→12:41)
[2019-06-26] MEDS: METOPROLOL TARTRATE 5 MG/5 ML VIAL IVP ONE ×2 (12:52→13:00)
[2019-06-26] MEDS: NITROGLYCERIN 1000MCG/10ML SYRINGE INTRACORON ONE ×4 (12:52→13:44)
[2019-06-26] MEDS ORDERED: METOPROLOL TARTRATE 5 MG/5 ML VIAL IVP ONE (12:52)
[2019-06-26] MEDS ORDERED: HYDROmorphone 1 MG/ML 1 ML SYRINGE ONE (12:58)
[2019-06-26] MEDS ORDERED: IOPAMIDOL-370 100ML BTL INJ ONE ×3 (13:00→13:52)
[2019-06-26] MEDS: HYDROmorphone 1 MG/ML 1 ML SYRINGE IVP ONE ×2 (13:01→13:51)
[2019-06-26] MEDS ORDERED: BIVALIRUDIN 250 MG in SODIUM CHLORIDE 0.9% 50 ML IV ONE (13:38)
[2019-06-26] MEDS ORDERED: CLOPIDOGREL 75 MG TAB PO ONE (13:51)
[2019-06-26 14:44] VITALS: BMI 35.9
[2019-06-26] MEDS ORDERED: RX INFO: IV CONTRAST WAS GIVEN 1 EACH MISC MISCELLANE PRN (14:50)
[2019-06-26] MEDS ORDERED: FLUTICASONE 50MCG/SPRAY NASAL 16GM EA NOSTRIL PRN (14:51)
[2019-06-26] MEDS ORDERED: AZELASTINE 137MCG/SPRAY NASAL PRN (14:51)
[2019-06-26] MEDS ORDERED: ONDANSETRON 4 MG/2 ML VIAL IVP STA (14:54)
[2019-06-26 16:37] LABS: Glucose,Whole Blood 151 mg/dL (75-99)
[2019-06-26] MEDS: hydrALAZINE HCL 50 MG TAB PO SCH ×2 (16:50→21:01)
[2019-06-26] MEDS: INSULIN ASPART (NovoLOG) 100 UNIT/ML VIAL SQ SCH ×2 (16:51→21:01)
[2019-06-26] MEDS: SODIUM CHLORIDE 0.9% 1,000 ML IV SCH (16:51)
[2019-06-26 20:43] LABS: Glucose,Whole Blood 140 mg/dL (75-99)
--- NOTE | 2019-06-26 20:51 | PCN ---
PROCEDURE NOTE DATE OF SERVICE: 06/26/2019 PROCEDURES: 1. Selective coronary angiography of right coronary artery to check patency of this vessel which was stented 4 weeks ago. 2. Percutaneous transluminal coronary angioplasty and stenting of a complex calcified tortuous mid LAD with 3 drug-eluting stents. PERFORMED BY: Dr. Kirby Mackey. SEDATION: Moderate conscious sedation time was 98 minutes. The patient was administered Versed and Dilaudid, and oxygen saturation, hemodynamics and EKG were monitored closely. CLINICAL INFORMATION: Mrs. Umberto Peña is a 79-year-old lady with a history of type 2 diabetes, hypertension and hyperlipidemia who was seen by me when she presented with acute inferior PR about 4 weeks ago and underwent stenting of RCA in the setting of an acute PR with excellent result. She also had a long area of disease with heavy calcification in the mid LAD, and this was to be addressed as a staged procedure. She was brought in for this procedure electively. She also has history of type 2 diabetes, hypertension, hyperlipidemia and probable sleep apnea syndrome with nighttime bradycardia. The patient was brought in for the procedure after due discussion regarding risks, benefits and options. PROCEDURE NOTE: Under local anesthesia and strict aseptic precautions, a 6-Chinese introducer was placed in the right radial artery uneventfully. I tried to advance a right Taras catheter but could not get beyond the brachial artery because of severe spasm. I therefore abandoned this and proceeded from the right femoral approach. A 6-Chinese introducer was placed in the right femoral artery under strict aseptic precautions and local anesthesia. A standard right Taras catheter was used to perform selective coronary angiography of the right coronary artery, and I noted that the vessel was widely patent with good flow. Proximal RCA was stented about 4 weeks ago. This vessel was widely patent. I then transferred my attention to the LAD. Using a standard left Taras-type guide catheter, I performed selective coronary angiography of the left coronary artery and noted that the lesion in the mid LAD was long, calcified, and before the lesion was a very tortuous area which was also heavily calcified with a moderate 60% disease. The lesion in the mid LAD was at least 80%. Using a standard left Taras guide catheter and a run-through wire, I was able to cross the lesion and wire was kept distally. I tried to advance a 2.25 caliber 12 mm NC Trek balloon, but I could not get beyond the proximal tortuosity proximal to the lesion. I then used a 1.5 caliber Trek balloon of 8 mm length. With this I dilated the proximal segment as well as in the lesion itself and then switched over to a 2.0 caliber NC Trek. With this I was able to pre-dilate the lesion. I tried to advance another carlee wire because of difficulty in getting the stent. I advanced a 2.25 caliber 12 mm balloon, but I had difficulty again. I then switched over and advanced a BMW wire alongside the run-through wire. Using the run- through wire as a carlee and BMW wire as the main wire, I advanced a 2.0 caliber [place] 8 mm stent. I tried to advance a longer Napoleon stent, but I had difficulty. Eventually a 2.0 caliber 8 mm [place] stent was deployed at 14 atmospheres within the mid LAD lesion, and another stent of the same size and length was used to telescope the previous stent proximally. The mid LAD was effectively addressed with two 2.0 caliber 8 mm [place] stents that were deployed at 13 to 14 atmospheres. Patient had relief of chest pain. During the process, patient had chest pain and ST elevation in the precordial leads. Once I deployed the stent, the patient improved remarkably. EKG normalized. The patient was given Angiomax bolus and infusion as per protocol. However, I noted that there was proximal to the lesion an area of irregularity just before the diagonal branch. The lesion that was stented was after the diagonal branch and the area of concern was before the diagonal branch, and this was addressed with a 2.25 caliber 8 mm Xience stent that was deployed with the proximal end of the stent just before the diagonal branch. Excellent angiographic result was achieved with complete normalization of EKG. Remarkably good angiograms were noted after placement of the proximal stent. I gave some intracoronary nitroglycerin and final angiograms were excellent. The sheath was taken out and an Angio-Seal device used to secure hemostasis and she was sent to the room in a stable condition. I also applied a TR band to the right radial site as well. The patient tolerated the procedure well without complications. Findings and results were discussed with the patient as well as her . I expect that she will be discharged tomorrow if she remains stable. MMODL / IJN: [id number] /
[2019-06-26] MEDS ORDERED: ATORVASTATIN 80 MG TAB PO SCH (21:00)
[2019-06-26] MEDS ORDERED: ASPIRIN 81 MG PO SCH (21:00)
[2019-06-26] MEDS: amLODIPine 5 MG TAB PO SCH (21:01)
[2019-06-26] MEDS: MAGNESIUM OXIDE 400 MG TAB PO SCH (21:02)
[2019-06-27 06:00] LABS: Albumin 3.9 g/dL (3.5-5.0); Calcium 9.4 mg/dL (8.4-10.2); Potassium 4.2 mmol/L (3.5-5.1); Total Bilirubin 0.7 mg/dL (0.2-1.3); Total Protein 6.7 g/dL (6.3-8.2)
[2019-06-27 06:07] LABS: Basophils % (A) 0 %; Eosinophils # (A) 0.2 k/uL (0-0.7); Eosinophils % (A) 2 %; HCT 27.4 % (34.0-46.0); HGB 8.6 gm/dL (11.4-16.0); Hypochromasia Moderate; Lymphocytes # (A) 1.7 k/uL (1.0-4.8); Lymphocytes % (A) 23 %; MCH 25.9 pg (25.0-35.0); MCHC 31.5 g/dL (31.0-37.0); MCV 82.3 fL (80.0-100.0); Mean Platelet Volume 7.3; Monocytes # (A) 0.6 k/uL (0-1.0); Monocytes % (A) 7 %; Neutrophils # (A) 4.8 k/uL (1.3-7.7); Neutrophils % (A) 64 %; Platelet Count 259 k/uL (150-450); RBC 3.33 m/uL (3.80-5.40); RDW 15.4 % (11.5-15.5); WBC 7.6 k/uL (3.8-10.6)
[2019-06-27 06:30] LABS: Glucose,Whole Blood 125 mg/dL (75-99)
[2019-06-27] MEDS: INSULIN ASPART (NovoLOG) 100 UNIT/ML VIAL SQ SCH (06:57)
[2019-06-27] MEDS ORDERED: PANTOPRAZOLE 40 MG TABLET PO SCH (07:30)
[2019-06-27] MEDS: SODIUM CHLORIDE 0.9% 1,000 ML IV SCH (08:04)
[2019-06-27] MEDS ORDERED: HYDROCHLOROTHIAZIDE 12.5 MG CAP PO SCH (09:00)
[2019-06-27] MEDS ORDERED: LOSARTAN 50 MG TAB PO SCH (09:00)
[2019-06-27] MEDS ORDERED: ASPIRIN 81 MG PO SCH (09:00)
[2019-06-27] MEDS ORDERED: CLOPIDOGREL 75 MG TAB PO SCH ×2 (09:00)
[2019-06-27 09:08] VITALS: BP 149/65; PULSE 88; RESP 16; TEMP 98.3
[2019-06-27] MEDS: amLODIPine 5 MG TAB PO SCH (09:08)
[2019-06-27] MEDS: hydrALAZINE HCL 50 MG TAB PO SCH (09:09)
[2019-06-27] MEDS: MAGNESIUM OXIDE 400 MG TAB PO SCH (09:09)
--- NOTE | 2019-06-27 11:44 | DS ---
DISCHARGE SUMMARY DATE OF ADMISSION: 06/26/2019. DATE OF DISCHARGE: 06/27/2019. DIAGNOSIS: Unstable angina with a recent anterior myocardial infarction about 4 weeks ago. PROCEDURES PERFORMED: Selective injection of the RCA to check patency and PTCA and stenting of a complex mid LAD lesion in 2 areas with drug-eluting stents. Mrs. Peña was brought into hospital for elective PCI of LAD, which was a significant stenosis detected during her initial catheterization when she came with acute inferior NV 4 weeks ago. I performed cardiac cath from the radial initially but I could not get beyond the brachial artery because of severe spasm switched over to the femoral approach. Right coronary was widely patent at the site of stenting. Mid LAD stenting was performed with 2 areas of stents, two 8 mm stents were deployed in the mid LAD and this was a 2.0 caliber Napoleon stent. In the mid LAD proximal to the diagonal, I deployed a 2.25 caliber 8 mm Xience stent. Excellent angiographic result was achieved. This was a difficult procedure technically. End result was good. The patient's postprocedure course was uneventful. EKG is unremarkable. Labs are unremarkable. She is ambulating without symptoms. Right groin is clean and dry. Vitals are stable. No JVD or carotid bruit. S1, S2 with a short systolic murmur is audible. Lungs are clear. Abdomen and lower extremity exam unchanged. Rhythm strip reviewed pauses of up to 2.9 seconds, which occurred when she was asleep, presumably a sleep apnea and she is seeing Dr. Lim next week in this regard. The patient will be discharged and I will see her in the office on July 03. Discharge instructions regarding activity, diet and medications were given. She will continue the same medications, which do not include a beta swapnil mainly because of her bradycardic spells at night. She will continue all the other medicines including dual antiplatelet therapy and she already has prescriptions for this. MMODL / IJN: [id number] /
== END 2019-06-27 11:01 | disposition home or self-care (01) ==
LOC: CATHCVL 07:30 → 3SCARD 13:50 → CATHCVL 06-27 11:01
PROVIDERS: ATTEND Internal Medicine Interventional Cardiology
DX: I25.10 Atherosclerotic heart disease of native coronary artery without angina pectoris (principal); I25.84 Coronary atherosclerosis due to calcified coronary lesion; I77.1 Stricture of artery; I10 Essential (primary) hypertension; E11.9 Type 2 diabetes mellitus without complications; E78.5 Hyperlipidemia, unspecified; I25.2 Old myocardial infarction; G47.33 Obstructive sleep apnea (adult) (pediatric); R00.1 Bradycardia, unspecified; Z99.89 Dependence on other enabling machines and devices; Z95.5 Presence of coronary angioplasty implant and graft; Z79.4 Long term (current) use of insulin; Z79.02 Long term (current) use of antithrombotics/antiplatelets; Z79.82 Long term (current) use of aspirin; Z79.899 Other long term (current) drug therapy
CPT/HCPCS: 80053; 85025; C9600; C1769 ×6; C1760; C1887; C1725 ×2; C1894 ×2; C1874 ×2; J2001; J1170; J0583; Q9967; J2250

== ENCOUNTER → 2019-07-04 | Outpatient (CLI) | payer MEDICARE ==
--- NOTE | 2019-07-04 19:59 | CONS ---
CONSULTATION REASON FOR CONSULTATION: Sleep apnea. This is an obese 79-year-old female patient who was referred to me for evaluation and treatment of obstructive sleep apnea. The patient is diabetic and recently she was diagnosed having coronary artery disease. 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 The patient underwent angiogram and the patient had PTCA and stenting of a complex mid LAD lesion with drug- eluting stents under the care of Dr. Kirby Mackey. The patient was placed on beta swapnil. It was noted that the patient was having episodes of bradycardia. A home monitor that was done, and the patient had 3- to 4-second cardiac pauses. These were occurring mainly at nighttime, which obviously raised the suspicion for obstructive sleep apnea. The patient has a preserved LV function with an ejection fraction of 55% to 60% along with mild concentric left ventricular hypertrophy, moderate MR, mild TR. PA pressures were quite low. Clinically the patient snores. She quits breathing as reported by her . She goes to bed around 11 p.m., wakes up at 7 a.m. in the morning. She has chronic tiredness and fatigue during the day. She has a large tongue with a Mallampati class IV. Her Montville score is 12. She does not fall asleep while driving her car or while doing activities of day-to-day life. She is, however, chronically fatigued and somnolent. PAST MEDICAL HISTORY: Her past medical history includes: 1. Coronary artery disease with recent coronary intervention and stenting. 2. Diabetes mellitus. 3. Hypertension. 4. Hyperlipidemia. 5. Obesity. PAST SURGICAL HISTORY: Past surgical history includes: 1. Cardiac catheterization. 2. Insertion of coronary stents. 3. . 4. Cataract surgery. DRUG ALLERGIES: MORPHINE and DEMEROL. OUTPATIENT MEDICATION: Outpatient medication list includes a combination of: 1. Aspirin 81 mg p.o. daily. 2. Plavix 75 mg p.o. daily. 3. Norvasc 5 mg twice a day. 4. Flonase nose spray. 5. Lantus 30 units daily. 6. Januvia 100 mg p.o. daily. 7. Cozaar 50 mg p.o. daily. 8. Metformin 1000 mg twice a day. 9. Protonix 40 daily. 10.Lipitor 80 daily. 11.Hydrochlorothiazide 12.5 mg p.o. daily. 12.Hydralazine 25 mg t.i.d. 13.Metoprolol 12.5 mg once a day. 14.She is also on magnesium citrate. 15.Coenzyme Q. 16.Astelin nasal spray. 17.Nitroglycerin 0.4 mg on a p.r.n. basis. FAMILY HISTORY: Father had myocardial infarction and coronary artery disease. REVIEW OF SYSTEMS: Fourteen-point review of systems was done. Positive findings were all mentioned above in the history of present illness. She is currently free of any chest pain. She is chronically fatigued and tired and sleepy. I came to find out that the patient also has a mild component of chronic kidney disease with stage II chronic kidney disease, according to the records. She is very compliant with respiratory medications. She is being investigated for obstructive sleep apnea. No reported syncope. 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 PHYSICAL EXAMINATION: VITAL SIGNS: Her BP is 138/76, pulse 88, respirations 18, temperature 98.3, saturation 95% on room air. Weight is 178. Height is 4 feet 9 inches. Montville score is 12. Neck size is 15-1/2 inches. BMI is 38.5. GENERAL APPEARANCE: Calm, comfortable. HEAD: Atraumatic, normocephalic. NECK: Supple. Mallampati class IV. No goiter or neck masses. Small chin and large tongue. LUNGS: Clear to auscultation. HEART: Heart sounds are regular rate and rhythm. Normal S1, S2. No S3, S4. No murmurs. ABDOMEN: Soft, nontender. No organomegaly. EXTREMITIES: No edema. No cyanosis or clubbing. IMPRESSION: 1. Obstructive sleep apnea clinically suspected, currently under investigation. 2. Nocturnal bradyarrhythmia with possible few seconds of cardiac pauses, less than 4 seconds. Rule out sleep breathing disorder. Underlying obstructive sleep apnea cannot be ruled out, as the patient has typical features. 3. Coronary artery disease with recent coronary intervention and stenting. 4. Hypertension. 5. Diabetes mellitus, insulin-dependent. 6. Hyperlipidemia. 7. Obesity with a body mass index of 38.5. 8. Chronic kidney disease, stage II. 9. Chronic anemia. PLAN: 1. Encourage weight loss. 2. Implement good sleep hygiene measures. 3. Continue cardiac medication and tight control of cardiovascular risk factors. 4. Will set up this patient for a home sleep study to rule out the possibility of obstructive sleep apnea. If confirmed, the patient will be coming to the lab to undergo a CPAP titration in the lab, and this will be a good opportunity to make sure the patient is fully treated without any cardiac arrhythmias. 5. Continue the rest of her cardiac medication. 6. Will continue to follow. MMODL / IJN: [id number] /
== END | disposition home or self-care (01) ==
LOC: SLEEP 14:10
PROVIDERS: ATTEND Internal Medicine Critical Care Medicine
DX: I49.8 Other specified cardiac arrhythmias (principal); I25.10 Atherosclerotic heart disease of native coronary artery without angina pectoris; E11.22 Type 2 diabetes mellitus with diabetic chronic kidney disease; I12.9 Hypertensive chronic kidney disease with stage 1 through stage 4 chronic kidney disease, or unspecified chronic kidney disease; N18.2 Chronic kidney disease, stage 2 (mild); E78.5 Hyperlipidemia, unspecified; D64.89 Other specified anemias; E66.9 Obesity, unspecified; Z68.38 Body mass index [BMI] 38.0-38.9, adult; Z95.5 Presence of coronary angioplasty implant and graft; Z79.82 Long term (current) use of aspirin; Z79.02 Long term (current) use of antithrombotics/antiplatelets; Z79.51 Long term (current) use of inhaled steroids; Z79.4 Long term (current) use of insulin; Z88.5 Allergy status to narcotic agent
CPT/HCPCS: 99211